=== PATIENT | female | born 1990 | race Caucasian/White ===

== ENCOUNTER 2022-11-02 11:20 | Emergency (ER) | payer MEDICAID, SELFPAY ==
[2022-11-02 11:32] VITALS: BP 152/74; PULSE 98; RESP 16; TEMP 37.1; O2SAT 100
--- NOTE | 2022-11-02 11:50 | ED.GENADULT ---
HPI - General Adult General Chief complaint: Urogenital-Female Stated complaint: Urinary Problem Source: patient Mode of arrival: ambulatory Limitations: no limitations History of Present Illness HPI narrative: Patient presents for evaluation of urinary symptoms for last 3 days. Symptoms include dysuria, urinary urgency, suprapubic cramping, low back pain and nausea. No fever, chills, vomiting. No vaginal bleeding or discharge. She has a history of recurrent urinary tract infections and this feels similar. She has been taking Azo for her symptoms. Related Data Allergies Allergy/AdvReac Type Severity Reaction Status Date / Time amoxicillin Allergy Unknown Verified 11/02/22 11:33 Penicillins Allergy Unknown Verified 11/02/22 11:33 Review of Systems Review of Systems: CONSTITUTIONAL: Denies fever, chills, or sweats. EYES: Denies visual changes, redness, or discharge. ENT: Denies rhinorrhea, congestion, sore throat, or otalgia. CARDIOVASCULAR: Denies chest pain, palpitations, or edema. RESPIRATORY: Denies cough or dyspnea. GASTROINTESTINAL: Reports nausea. Denies abdominal pain, vomiting, or diarrhea. GENITOURINARY: Reports dysuria, urinary urgency and suprapubic cramping SKIN: Denies rash or itching. MUSCULOSKELETAL: Reports low back pain. Denies joint pain, or myalgia. NEUROLOGIC: Denies headache, numbness, dizziness, or weakness. PSYCHIATRIC: Denies anxiety or depression. PMFSH Past Medical History Medical History Recurrent UTI Surgical History Surgical History No pertinent past surgical history Family History Family History Mother Family history non-contributory Social History Social History (Updated 11/02/22 @ 11:54 by Irvin Nielsen, [facility], ) Substance use: never Gender identity (if verbalized by the patient): Female Sexual Orientation (if Verbalized by the Patient): Straight or Heterosexual Spiritual care concerns: No Exam Narrative: GENERAL: Well-appearing, well-nourished, and in no acute distress. HEAD: Normocephalic, atraumatic. EYES: PERRLA and EOMI. ENT: Nares clear, no rhinorrhea or epistaxis. Mucous membranes moist. Oropharynx without tonsillar hypertrophy exudate or other lesions. Bilateral TMs pearly hurley nonbulging NECK: Supple. No adenopathy or masses. No carotid bruits or JVD CHEST: Clear to auscultation. No respiratory distress. No wheezes rales or rhonchi HEART: Regular rate and rhythm. No murmur heard. Normal peripheral pulses. ABDOMEN: Soft, nondistended, normal active bowel sounds. Mild suprapubic tenderness without rebound or guarding EXTREMITIES: Normal range of motion. No edema. BACK: Mild left sided CVA tendernss SKIN: Warm, dry, no rash. NEURO: No focal deficits. Alert and oriented x3. PSYCH: Normal mood and affect. Course Course Emergency Course: This is a 32-year-old female who presented for evaluation of urinary symptoms. Urine is nitrite positive. Will treat with macrobid. Zofran for nausea. She already has Azo at home. Follow-up with primary provider. Go to the ER for worsening symptoms. Patient in agreement plan of care Level of Care: Express Care Visit Vital Signs Vital signs: Vital Signs Temperature 37.1 C 11/02/22 11:32 Pulse Rate 98 11/02/22 11:32 Respiratory Rate 16 11/02/22 11:32 Blood Pressure 152/74 H 11/02/22 11:32 Pulse Oximetry 100 11/02/22 11:32 Oxygen Delivery Room Air 11/02/22 11:32 Temperature 37.1 C 11/02/22 11:32 Pulse Rate 98 11/02/22 11:32 Respiratory Rate 16 11/02/22 11:32 Blood Pressure 152/74 H 11/02/22 11:32 Pulse Oximetry 100 11/02/22 11:32 Oxygen Delivery Room Air 11/02/22 11:32 Medical Decision Making Vital Signs Vital Signs: Vital Signs Temperature 37.1 C 11/02/22 11:32 Pulse Ra
== END 2022-11-02 11:53 | disposition home or self-care (01) ==
PROVIDERS: Emergency Provider Nurse Practitioner
DX: N39.0 Urinary tract infection, site not specified (principal)
CPT/HCPCS: 81003; 87077; 87086; 87186; 99213; G0463

== ENCOUNTER 2023-03-14 10:33 | Emergency (ER) | payer MEDICAID, SELFPAY ==
[2023-03-14 10:41] VITALS: BP 144/93; PULSE 85; RESP 16; TEMP 36.9; O2SAT 100
--- NOTE | 2023-03-14 10:55 | ED.FEMALEGU ---
HPI - Female Genitourinary General Chief complaint: Urogenital-Female Stated complaint: Urinary Problem Source: patient and RN notes reviewed History of Present Illness HPI Narrative: 32 yo F Presents to urgent care with complaints of hematuria, dysuria, and mid abdominal pain that radiates around both sides. Pt states her pain is crampy in nature and does wax and wane but is constant. Reports nausea and diarrhea. Reports having hot flashes and chills at times. Pt states she did have her control implant removed about 1 month ago. Pt states her last menstrual period was 2 weeks ago but continued to have spotting. Pt states she gets UTIs all the time and has discussed the possibility of being placed on a preventative Abx for them. Pt's last UTI was in Oct this year and she placed on Macrobid. Denies any known fevers or fevers. Related Data Allergies Allergy/AdvReac Type Severity Reaction Status Date / Time amoxicillin Allergy Unknown Verified 03/14/23 11:00 Penicillins Allergy Unknown Verified 03/14/23 11:00 Review of Systems Review of Systems: Pertinent positives and pertinent negatives per HPI. PMFSH Past Medical History Medical History (Updated 03/14/23 @ 10:59 by Donna Jefferson, [employer]) Recurrent UTI Surgical History Surgical History No pertinent past surgical history Family History Family History Mother Family history non-contributory Social History Social History (Updated 11/02/22 @ 11:54 by Irvin Nielsen, [facility], ) Substance use: never Gender identity (if verbalized by the patient): Female Sexual Orientation (if Verbalized by the Patient): Straight or Heterosexual Spiritual care concerns: No Comments At the time of my signature, I reviewed and agree with the nursing past medical, surgical, social, and family history. There is no relevant family history pertinent to the patient complaint. Exam Narrative: GENERAL: This is a well-nourished, well-developed patient, in no apparent distress. HEAD: normocephalic, atraumatic. EYES: Sclera clear/white. Vision is grossly intact. EARS: External ears normal, auditory canals clear and without drainage, TMs normal without perforation. Hearing grossly intact. NOSE: External nose normal with no obvious nasal discharge, nares without redness, no rhinorrhea. THROAT: Mucous membranes moist, posterior pharynx clear. NECK: Neck supple, non-tender without lymphadenopathy, masses or thyromegaly. CARDIOVASCULAR: Regular rate and rhythm without murmurs, gallops, or rubs. RESPIRATORY: Clear to auscultation. Breath sounds equal bilaterally. No wheezes, rales, or rhonchi. GASTROINTESTINAL: Abdomen soft, non-tender, nondistended. Bowel sounds are active. No hepato-splenomegaly, or palpable masses. No guarding. SKIN: warm, intact with no suspicious lesions or rash, good texture and turgor. NEURO: awake, alert, and oriented to person, place and time. There were no obvious focal neurologic abnormalities. EXTREMITIES: No clubbing, cyanosis, or edema. No joint tenderness, effusion, or edema noted. BACK: Nontender without deformity or crepitus. No flank tenderness. Course Course Level of Care: Express Care Visit Vital Signs Vital signs: Vital Signs Temperature 98.5 F 03/14/23 10:41 Pulse Rate 85 03/14/23 10:41 Respiratory Rate 16 03/14/23 10:41 Blood Pressure 144/93 H 03/14/23 10:41 Pulse Oximetry 100 03/14/23 10:41 Oxygen Delivery Room Air 03/14/23 10:41 Temperature 98.5 F 03/14/23 10:41 Pulse Rate 85 03/14/23 10:41 Respiratory Rate 16 03/14/23 10:41 Blood Pressure 144/93 H 03/14/23 10:41 Pulse Oximetry 100 03/14/23 10:41 Oxygen Delivery Room Air 03/14/23 10:41 Reviewed MDM - Female Genitourinary MDM Narrative Medical decision making narrative: We will send a urine culture off to
== END 2023-03-14 11:18 | disposition home or self-care (01) ==
PROVIDERS: Emergency Provider Nurse Practitioner Family
DX: N39.0 Urinary tract infection, site not specified (principal)
CPT/HCPCS: 81003; 81025; 87086; 99213; G0463

== ENCOUNTER 2023-07-13 09:05 | Emergency (ER) | payer BC, SELFPAY ==
[2023-07-13 09:19] VITALS: BP 134/66; PULSE 89; RESP 16; TEMP 37; O2SAT 100
--- NOTE | 2023-07-13 10:14 | ED.FEMALEGU ---
HPI - Female Genitourinary General Chief complaint: Urogenital-Female Stated complaint: Urinary Problem Source: patient and RN notes reviewed Mode of arrival: ambulatory Limitations: no limitations History of Present Illness HPI Narrative: 33y/o female with hx recurrent UTIs presented for c/o UTI symptoms. Reports burning with urination and frequency, low back pain for about one week. Also reports low abdominal cramping which she attributed to menses. States she had Nexplanon removed 3 months ago, and has had regular cycles until recently, stating LMP was 2 weeks ago and again today. Denies n/v/d, flank pain, fever or chills. Recently relocated from [place], and stated she was supposed to establish with or start preventive abx but did not. Related Data Allergies Allergy/AdvReac Type Severity Reaction Status Date / Time amoxicillin Allergy Unknown Verified 07/13/23 09:53 Penicillins Allergy Unknown Verified 07/13/23 09:53 Review of Systems Review of Systems: CONSTITUTIONAL: Denies body aches, fever, chills, or sweats. CARDIOVASCULAR: Denies chest pain, palpitations, or edema. RESPIRATORY: Denies cough or dyspnea. GASTROINTESTINAL: Denies abdominal pain, nausea, vomiting, or diarrhea. GENITOURINARY: Reports dysuria, frequency, urgency, denies hematuria, flank pain SKIN: Denies rash, itching, or wounds. MUSCULOSKELETAL: Denies back pain or myalgia. [facility] Past Medical History Medical History Recurrent UTI Surgical History Surgical History No pertinent past surgical history Family History Family History Mother Family history non-contributory Social History Social History Substance use: never Gender identity (if verbalized by the patient): Female Sexual Orientation (if Verbalized by the Patient): Straight or Heterosexual Spiritual care concerns: No Comments At time of signature, I have reviewed and agree with nursing past medical, surgical, social and family history unless otherwise noted. Please see nursing chart for further information. There is no relevant family history pertinent to the presenting complaint Exam Narrative: GENERAL: Well-appearing and in no acute distress. HEAD: Normocephalic EYES: EOMI. . ENT: Mucous membranes pink and moist. NECK: Normal AROM. Supple. CHEST: No respiratory distress. Clear to auscultation. HEART: Regular rate and rhythm. ABDOMEN: Soft, nontender, nondistended, normal active bowel sounds. No CVA tenderness MUSCULOSKELETAL: No bony tenderness. SKIN: Warm, dry, no rash. NEURO: No focal deficits. Alert and oriented x3. Gait steady. PSYCH: Normal affect. Course Course Emergency Course: Patient is aware of diagnosis, understands and agrees to treatment plan. Anticipatory guidance given. Patient agrees to follow-up as directed and is aware of reasons to seek care at the emergency department. Portions of this record may have been created with voice recognition software Level of Care: Express Care Visit Vital Signs Vital signs: Vital Signs Temperature 98.6 F 07/13/23 09:19 Pulse Rate 89 07/13/23 09:19 Respiratory Rate 16 07/13/23 09:19 Blood Pressure 134/66 07/13/23 09:19 Pulse Oximetry 100 07/13/23 09:19 Oxygen Delivery Room Air 07/13/23 09:19 Temperature 98.6 F 07/13/23 09:19 Pulse Rate 89 07/13/23 09:19 Respiratory Rate 16 07/13/23 09:19 Blood Pressure 134/66 07/13/23 09:19 Pulse Oximetry 100 07/13/23 09:19 Oxygen Delivery Room Air 07/13/23 09:19 Reviewed MDM - Female Genitourinary MDM Narrative Medical decision making narrative: Discussed urine results. Advised supportive measures and signs/symptoms to go to the ER. Pt is appropriate for outpt treatment and f/u. Provide
== END 2023-07-13 10:20 | disposition home or self-care (01) ==
PROVIDERS: Emergency Provider Nurse Practitioner Family
DX: N39.0 Urinary tract infection, site not specified (principal); B95.1 Streptococcus, group B, as the cause of diseases classified elsewhere
CPT/HCPCS: 81003; 87086; 87088; 87147; 99213; G0463

== ENCOUNTER 2023-09-18 08:52 | Emergency (ER) | payer BC, SELFPAY ==
--- NOTE | 2023-09-18 08:54 | ED.URI ---
HPI - URI/Sore Throat General Chief Complaint: Upper Respiratory Infection Stated Complaint: congestion/throat/headache/eyes Time Seen by Provider: 09/18/23 09:30 Source: patient, RN notes reviewed and old records reviewed Mode of arrival: ambulatory Limitations: no limitations History of Present Illness HPI Narrative: 33-year-old female presents to [facility] with complaints of 2 weeks sinus congestion, sore throat, headache, eye irritation. Patient reports she has felt feverish, headaches has tried ?every [id number] product. ? Has had red puffy eyes intermittently Denies chest pain or abdominal pain. Onset (ago): week(s) (2) Treatments prior to arrival: cold medicine Related Data Allergies Allergy/AdvReac Type Severity Reaction Status Date / Time amoxicillin Allergy Unknown Verified 07/13/23 09:53 Penicillins Allergy Unknown Verified 07/13/23 09:53 Review of Systems Review of Systems: All systems reviewed & are unremarkable except as noted in HPI and below Constitutional: Constitutional: Reports as per HPI, Reports body ache(s), Reports fatigue and Reports fever(s) Eyes: Eyes: Reports as per HPI ENT: Reports as per HPI, Reports nasal congestion and Reports sore throat Cardiovascular: Cardiovascular: Reports no additional cardiovascular complaints, Denies chest pain and Denies dyspnea Respiratory: Respiratory: Reports as per HPI, Denies chest congestion, Reports cough and Denies dyspnea Gastrointestinal: Gastrointestinal: Reports no additional gastrointestinal complaints, Denies abdominal pain, Denies nausea and Denies vomiting Musculoskeletal: Musculoskeletal: Reports no additional musculoskeletal complaints Integumentary/Breasts: Skin/Breast: Reports system reviewed and no additional complaints, except as docu Neurologic: Reports system reviewed and no additional complaints, except as documented Psychiatric: Psychiatric: Reports no additional psychiatric complaints Allergic/Immunologic: Allergic/Immunologic: Reports no additional allergic/immunologic complaints PMFSH Past Medical History Medical History Recurrent UTI Surgical History Surgical History No pertinent past surgical history Family History Family History Mother Family history non-contributory Social History Social History Substance use: never Gender identity (if verbalized by the patient): Female Sexual Orientation (if Verbalized by the Patient): Straight or Heterosexual Spiritual care concerns: No Comments At the time of my signature, I reviewed and agree with the nursing past medical, surgical, social, and family history. There is no relevant family history pertinent to the patient complaint. Exam Const: General: cooperative, healthy appearing, comfortable, no acute distress, well developed, alert and well nourished Nutritional Appearance: well nourished Orientation/consciousness: patient oriented x3 Limitations: no limitations HENMT: Head: normal to inspection Ears: hearing grossly normal bilaterally, external ears normal, TM's normal bilaterally, EAC's normal, mastoids normal and no periauricular adenopathy Face/Nose/Sinus: Normal external nose present, Normal nares present, Normal nasal mucous membranes and turbinates present, No nasal discharge present, normal facial exam, sinuses nontender and face symmetric Face and sinus: normal facial exam and face symmetric Mouth: Yes Normal oral and palatal mucosa present, Yes lip normal and Yes moist mucous membranes Throat: posterior oropharynx normal, tonsils normal, uvula midline and postnasal drainage Eyes: General: appearance normal, both eyes and all related structures Alignment and Position: alignment normal Periorbital: periorbital findings normal Pup
[2023-09-18 09:00] VITALS: BP 155/59; PULSE 92; RESP 20; TEMP 36.6; O2SAT 100
== END 2023-09-18 09:45 | disposition home or self-care (01) ==
PROVIDERS: Emergency Provider Nurse Practitioner
DX: J06.9 Acute upper respiratory infection, unspecified (principal); J01.40 Acute pansinusitis, unspecified
CPT/HCPCS: 99213; G0463

== ENCOUNTER 2024-01-19 09:22 | Emergency (ER) | payer BC, SELFPAY ==
[2024-01-19 09:28] VITALS: BP 143/65; PULSE 93; RESP 20; TEMP 37.4; O2SAT 100
--- NOTE | 2024-01-19 09:31 | ED.BACK ---
HPI - Back Pain/Injury General Chief Complaint: Back Pain/Injury Stated Complaint: Sever Back Pain Source: patient Mode of arrival: ambulatory Limitations: no limitations History of Present Illness HPI Narrative: 33-year-old female presented for complaint of left lower back pain for about 1 week. Endorses pain is constant, sharp, occasionally radiates into the hip or down the thigh. Denies Fall or injury. Has taken Tylenol, ibuprofen and meloxicam without relief. Pain is worse with twisting movement and at night, states she cannot sleep. Denies numbness, tingling, weakness of the lower extremities, or change in gait, saddle paresthesia or loss of bowel or bladder. history of broken back and UTIs. Related Data Allergies Allergy/AdvReac Type Severity Reaction Status Date / Time amoxicillin Allergy Unknown Verified 07/13/23 09:53 Penicillins Allergy Unknown Verified 07/13/23 09:53 Review of Systems Review of Systems: CONSTITUTIONAL: Denies body aches, fever, chills EYES: Denies visual changes CARDIOVASCULAR: Denies chest pain, palpitations, or edema. RESPIRATORY: Denies cough or dyspnea. GASTROINTESTINAL: Denies abdominal pain, nausea, vomiting, or diarrhea. SKIN: Denies rash, itching, or wounds. MUSCULOSKELETAL: reports back pain NEUROLOGIC: Denies headache, numbness, tingling, or weakness. All systems reviewed & are unremarkable except as noted in HPI and below PMFSH Past Medical History Medical History Recurrent UTI Surgical History Surgical History No pertinent past surgical history Family History Family History Mother Family history non-contributory Social History Social History Substance use: never Gender identity (if verbalized by the patient): Female Sexual Orientation (if Verbalized by the Patient): Straight or Heterosexual Spiritual care concerns: No Comments At time of signature, I have reviewed and agree with nursing past medical, surgical, social and family history unless otherwise noted. Please see nursing chart for further information. There is no relevant family history pertinent to the presenting complaint Exam Narrative: GENERAL: Well-appearing NECK: Supple. full ROM CHEST: Speaks in full sentences. No respiratory distress. HEART: Regular rate and rhythm. Normal and equal peripheral pulses. MUSC: Left paraspinal tenderness over L-spine; No Vertebral point tenderness. BLEs with normal strength and sensation, normal range of motion; endorses pain with movement. No ecchymosis, No open wounds, or obvious deformity; alignment normal, pulse palpable and equal bilaterally, skin warm, dry, pink. Capillary refill less than 3 seconds. Gait steady. SKIN: Warm, dry, no rash. NEURO: Alert and oriented x3. Course Course Emergency Course: Patient is aware of diagnosis, understands and agrees to treatment plan. Anticipatory guidance given. Patient agrees to follow-up as directed and is aware of reasons to seek care at the emergency department. Portions of this record may have been created with voice recognition software Level of Care: Express Care Visit Vital Signs Vital signs: Reviewed MDM - Back Pain/Injury MDM Narrative Medical decision making narrative: Discussed physical exam findings. Patient had no injury. Will to with supportive measures and she will follow. Advised supportive measures and signs/symptoms to go to the ER. Pt is appropriate for outpt treatment and f/u. Differential Diagnosis Differential diagnosis: Likely lumbar radiculopathy, sciatica, strain of lumbar region, renal colic, pyelonephritis and discitis Discharge Plan Discharge Clinical Impression: Strain of lumbar region Patient Disposition: Home, Self-Care Conditi
== END 2024-01-19 09:49 | disposition home or self-care (01) ==
PROVIDERS: Emergency Provider Nurse Practitioner Family
DX: S39.012A Strain of muscle, fascia and tendon of lower back, initial encounter (principal)
CPT/HCPCS: 81003; 87086; 87088; 87147; 99213; G0463

== ENCOUNTER 2024-03-31 09:48 | Emergency (ER) | payer BC, SELFPAY ==
[2024-03-31 09:52] VITALS: BP 151/64; PULSE 100; RESP 16; TEMP 36.9; O2SAT 100
[2024-03-31 10:19] LABS: EDUAAPPEAR Clear; EDUABILI Negative; EDUABLOOD 3+; EDUACOLOR1 Yellow; EDUAGLUCOSE Negative; EDUAKETONE Negative; EDUALEUKO Negative; EDUANITRATE Negative; EDUAPH 8.5; EDUAPROTEIN Negative; EDUASPGRAVITY 1.025; EDUAUROBILI 0.2
--- NOTE | 2024-03-31 10:27 | ED.FEMALEGU ---
HPI - Female Genitourinary General Chief complaint: Urogenital-Female Stated complaint: migraine/nausea/uti Time Seen by Provider: 03/31/24 10:00 Source: patient and RN notes reviewed Mode of arrival: ambulatory Limitations: no limitations History of Present Illness HPI Narrative: Patient presents today complaining of a 10 day history of dysuria, frequency. Denies abdominal pain, back pain, fever. Reports history of frequent UTI. She is also complaining of a 3-4 day history of frontal headache with nausea, photophobia, intermittent dizziness. She vomited once this morning. Currently rates her pain 10/10 and has been taking Excedrin without much relief. Reports the symptoms are consistent with previous headaches. No formal diagnosis of migraine, but has been having chronic headaches for many years. Related Data Allergies Allergy/AdvReac Type Severity Reaction Status Date / Time amoxicillin Allergy Unknown Verified 03/31/24 10:37 Penicillins Allergy Unknown Verified 03/31/24 10:37 Review of Systems Review of Systems: CONSTITUTIONAL: Denies body aches, fever, chills, or sweats. EYES: Denies visual changes, redness, or discharge.+ photophobia ENT: Denies rhinorrhea, congestion, sore throat, or otalgia. CARDIOVASCULAR: Denies chest pain, palpitations, or edema. RESPIRATORY: Denies cough or dyspnea. GASTROINTESTINAL: Denies abdominal pain, or diarrhea.+ nausea, vomiting GENITOURINARY: + dysuria, frequency. SKIN: Denies rash, itching, or wounds. MUSCULOSKELETAL: Denies back pain, joint pain, or myalgia. NEUROLOGIC: Denies numbness, tingling, or weakness.+ headache, dizziness PSYCH: Denies depression or anxiety. [facility] Past Medical History Medical History Recurrent UTI Surgical History Surgical History No pertinent past surgical history Family History Family History Mother Family history non-contributory Social History Social History Substance use: never Gender identity (if verbalized by the patient): Female Sexual Orientation (if Verbalized by the Patient): Straight or Heterosexual Spiritual care concerns: No Comments At time of signature, I have reviewed and agree with nursing past medical, surgical, social and family history unless otherwise noted. Please see nursing chart for further information. There is no relevant family history pertinent to the presenting complaint Exam Narrative: GENERAL: Well-appearing, well-nourished, and in [id number] pain distress. HEAD: Normocephalic, atraumatic. EYES: EOMI. PERRL. No redness or drainage. Conjunctivae normal. ENT: Mucous membranes pink and moist. NECK: Normal AROM. Supple. No lymphadenopathy. CHEST: No respiratory distress. Clear to auscultation. HEART: Regular rate and rhythm. No murmur appreciated. ABDOMEN: Soft, nontender, nondistended, normal active bowel sounds. EXTREMITIES: Normal range of motion. No edema. SKIN: Warm, dry, no rash. Capillary refill normal. Normal skin turgor. NEURO: No focal deficits. Alert and oriented x3. Gait steady. 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 Dorsiflexion and plantar flexion equal and strong against resistance. PSYCH: Normal affect. No signs of depression or anxiety. Course Course Level of Care: Express Care Visit Vital Signs Vital signs: Vital Signs Temperature 98.5 F 03/31/24 09:52 Pulse Rate 100 03/31/24 09:52 Respiratory Rate 16 03/31/24 09:52 Blood Pressure 151/64 H 03/31/24 09:52 Pulse Oximetry 100 03/31/24 09:52 Oxygen Delivery Room Air 03/31/24 09:52 Temperature 98.5 F 03/31/24 09:52 Pulse Rate 100 03/31/24 09:52 Respiratory Rate 16 03/31/24 09:52 Blood Pressure 151/64 H 03/31/24 09:52 Pulse Oximetry 100
[2024-03-31] MEDS: ONDANSETRON HCL ODT 4 MG TABLET 8 MG SUBLINGUAL (10:33)
[2024-03-31] MEDS: KETOROLAC (*BKC) 60 MG/2 ML VIAL IM (10:34)
== END 2024-03-31 11:12 | disposition home or self-care (01) ==
PROVIDERS: Emergency Provider Nurse Practitioner
DX: N30.00 Acute cystitis without hematuria (principal); B95.1 Streptococcus, group B, as the cause of diseases classified elsewhere; R51.9 Headache, unspecified
CPT/HCPCS: 81003; 87086; 96372; 99213; A9270; G0463; J1885

== ENCOUNTER 2024-05-29 08:08 | Emergency (ER) | payer BC, SELFPAY ==
[2024-05-29 08:22] VITALS: BP 134/82; PULSE 105; RESP 18; TEMP 36.3; O2SAT 99
--- NOTE | 2024-05-29 08:28 | ED.EAR ---
HPI - Ear Problem General Chief complaint: Ear Stated complaint: Bilateral Ear Pain Time Seen by Provider: 05/29/24 08:28 Source: patient, RN notes reviewed and old records reviewed Mode of arrival: ambulatory Limitations: no limitations History of Present Illness HPI Narrative: 34-year-old female to [facility] for complaint of chronic migraine issues that have become acutely worse and constant over the past week. Patient endorsing dizziness, nausea, sinus pressure, bilateral ear pain, facial pain/ pressure. Patient currently endorsing 12/10 pain. Patient denies shortness of breath, vomiting, difficulty swallowing, visual changes, chest pain. Patient states that she did not drive to [facility] today, states her dropped her off. Patient states she has been treating home with Aleve and a 12 hour decongestant [id number] medication. Patient states she is also taking an antibiotic for a urinary tract infection. Patient reports being seen by her PCP on Friday regarding migraines. Patient states she is awaiting lab results. Patient able to tolerate by mouth. Patient sitting anxiously an exam room. respirations even and nonlabored. Patient able to speak in complete sentences without difficulty. Patient in no acute distress. Related Data Home Medications Medication Instructions Recorded Confirmed nitrofurantoin 05/29/24 monohydrate/macrocrystals 100 mg capsule Allergies Allergy/AdvReac Type Severity Reaction Status Date / Time amoxicillin Allergy Unknown Verified 03/31/24 10:37 Penicillins Allergy Unknown Verified 03/31/24 10:37 Review of Systems Review of Systems: All systems reviewed & are unremarkable except as noted in HPI and below Constitutional: Constitutional: Reports as per HPI Eyes: Eyes: Reports no additional eye complaints ENT: Reports as per HPI, Reports otalgia, Reports facial pain, Reports nasal congestion, Reports sinus pain and Reports sinus pressure Cardiovascular: Cardiovascular: Reports no additional cardiovascular complaints, Denies chest pain and Denies dyspnea Respiratory: Respiratory: Reports no additional respiratory complaints, Denies cough and Denies dyspnea Gastrointestinal: Gastrointestinal: Reports as per HPI and Reports nausea Musculoskeletal: Musculoskeletal: Reports no additional musculoskeletal complaints Neurologic: Reports as per HPI and Reports dizziness Psychiatric: Psychiatric: Reports no additional psychiatric complaints [facility] Past Medical History Medical History Recurrent UTI Surgical History Surgical History No pertinent past surgical history Family History Family History Mother Family history non-contributory Social History Social History Substance use: never Gender identity (if verbalized by the patient): Female Sexual Orientation (if Verbalized by the Patient): Straight or Heterosexual Spiritual care concerns: No Comments At the time of my signature, I reviewed and agree with the nursing past medical, surgical, social, and family history. There is no relevant family history pertinent to the patient complaint. Exam Const: General: cooperative, no acute distress, well developed, alert, awake, Physically active, anxious, tired appearing, well groomed and well nourished Nutritional Appearance: well nourished Orientation/consciousness: patient oriented x3 Limitations: no limitations HENMT: Head: normal to inspection Ears: external ears normal and TM abnormal with fluid behind the TM bilateral ( non infectious) Face/Nose/Sinus: Normal external nose present, Abnormal mucous membranes and turbinates present erythematous, normal facial exam, No erythema and No edema Face and sinus
== END 2024-05-29 09:02 | disposition home or self-care (01) ==
PROVIDERS: Emergency Provider Nurse Practitioner Family
DX: J32.9 Chronic sinusitis, unspecified (principal)
CPT/HCPCS: 99213; G0463

== ENCOUNTER 2024-08-15 08:14 | Emergency (ER) | payer BC, SELFPAY ==
[2024-08-15 08:23] VITALS: BP 158/87; PULSE 94; RESP 16; TEMP 36.4; O2SAT 100
--- NOTE | 2024-08-15 08:26 | ED.EAR ---
HPI - Ear Problem General Chief complaint: Ear Stated complaint: right ear pain Time Seen by Provider: 08/15/24 08:26 Source: patient, RN notes reviewed and old records reviewed Mode of arrival: ambulatory Limitations: no limitations History of Present Illness HPI Narrative: 34 year old female who presents to [facility] with complaints of right ear pain that started last night. Patient reports that she has had some nausea and dizziness with the ear pain also. Patient reports that she has did vomit some last night. Patient reports that she has been taking Tylenol for her discomfort. Patient reports no fevers states some sinus congestion on going also. MD Complaint: ear pain Location: right ear Duration: constant Severity: moderate Discharge from ear: Reports no Treatment prior to arrival: other (tylenol) Related Data Allergies Allergy/AdvReac Type Severity Reaction Status Date / Time amoxicillin Allergy Unknown Verified 03/31/24 10:37 Penicillins Allergy Unknown Verified 03/31/24 10:37 Review of Systems Review of Systems: CONSTITUTIONAL: Reports malaise,no chills, sweats, or fever. EYES: Denies visual changes, redness, or discharge. ENT: Reports rhinorrhea, congestion, no sinus pain, positive for right otalgia and no sore throat. CARDIOVASCULAR: Denies chest pain, palpitations, or edema. RESPIRATORY: Reports no cough.? Denies dyspnea. GASTROINTESTINAL: Denies abdominal pain,some nausea, vomiting, no diarrhea SKIN: Denies rash or itching. MUSCULOSKELETAL: Denies myalgia. NEUROLOGIC: Denies headache. All systems reviewed & are unremarkable except as noted in HPI and below PMFSH Past Medical History Medical History Recurrent UTI Surgical History Surgical History No pertinent past surgical history Family History Family History Mother Family history non-contributory Social History Social History Substance use: never Gender identity (if verbalized by the patient): Female Sexual Orientation (if Verbalized by the Patient): Straight or Heterosexual Spiritual care concerns: No Comments At time of signature, agree with nursing past medical, surgical, social and family history. There is no relevant family history pertinent to the presenting complaint Exam Narrative: GENERAL: Well-appearing, well-nourished, and in no acute distress. HEAD: Normocephalic EYES: PERRLA, conjunctivae clear ENT: Nares clear, turbinates edematous and erythematous, clear discharge. Mucous membranes moist Right TM red Left TM pearly hurley with dull light reflex; no tragal tenderness. Oropharynx erythematous without lesions. Tonsils not enlarged and without exudate, no drooling, no hoarseness, no trismus, uvula midline. NECK: Supple. No lymphadenopathy CHEST: Clear to auscultation, breath sounds equal. No wheezing, rhonchi, rales, or stridor. No respiratory distress, speaks in full sentences.SAO2 199% on room air HEART: Regular rate and rhythm. No murmur heard. SKIN: Warm, dry, no rash. NEURO: Alert and oriented x3. PSYCH: Normal mood and affect Course Course Emergency Course: Patient is aware of diagnosis, understands and agrees to treatment plan.? Anticipatory guidance given.? Patient agrees to follow-up as directed and is aware of reasons to seek care at the emergency department. Portions of this record may have been created with voice recognition software Level of Care: [facility] Visit Vital Signs Vital signs: Vital Signs Temperature 36.4 C L 08/15/24 08:23 Pulse Rate 94 08/15/24 08:23 Respiratory Rate 16 08/15/24 08:23 Blood Pressure 158/87 H 08/15/24 08:23 Pulse Oximetry 100 08/15/24 08:23 Oxygen Delivery Room Air 08/15/24 08:23 Temperature 36.4 C L 08/15/24 08:23 Pulse Rate 94 08/15/24 08:23 Respiratory Rate 16 08/15/24 08:23 Blood Pressure 158/87 H 08/15/24 08:23 Pulse Oximetry 100 08/15/24 08:23 Oxygen Delivery Room Air 08/15/24 08:23 Reviewed Medical Decision Making Differential Diagnosis Differential Diagnosis: URI, otitis media, rhinosinusitis, viral infection Medical Records Medical records reviewed: Yes I reviewed the external patient's medical records. Vital Signs Vital Signs: Vital Signs Temperature 36.4 C L 08/15/24 08:23 Pulse Rate 94 08/15/24 08:23 Respiratory Rate 16 08/15/24 08:23 Blood Pressure 158/87 H 08/15/24 08:23 Pulse Oximetry 100 08/15/24 08:23 Oxygen Delivery Room Air 08/15/24 08:23 Temperature 36.4 C L 08/15/24 08:23 Pulse Rate 94 08/15/24 08:23 Respiratory Rate 16 08/15/24 08:23 Blood Pressure 158/87 H 08/15/24 08:23 Pulse Oximetry 100 08/15/24 08:23 Oxygen Delivery Room Air 08/15/24 08:23 reviewed Critical Care Time Critical Care Time Critical Care Time: No Discharge Plan Discharge Clinical Impression: Otitis media, right Qualifiers: Otitis media type: serous Chronicity: acute Recurrence: non-recurrent Qualified Code(s): H65.01 - Acute serous otitis media, right ear Nausea & vomiting Qualifiers: Vomiting type: unspecified Qualified Code(s): R11.2 - Nausea with vomiting, unspecified Patient Disposition: Home, Self-Care Condition: Stable Instructions: Antibiotic Form, Ear Infection (ED), Acute Nausea and Vomiting (ED) Additional Instructions: Increase fluids especially juices and water Fuoh-yvq-jwmupsy cough and cold medicine of your choice for your symptoms Tylenol or ibuprofen for any fever pain Zyrtec Claritin or Ayesha daily heat to the face 20-30 minutes 4-6 times a day for pain Salt water gargles, throat lozenges or throat sprays as desired Antibiotic as directed--finished the medication If your symptoms persist, change or worsen significantly before you can contact your personal physician then please, without delay, go to the emergency department for further evaluation. Follow-up with PCP in 7-10 days or sooner if needed Follow up with PCP soon in regards to your blood pressure which is elevated above threshold for referral. Blood pressure above 120/80 may indicate pre-hypertension. Prescriptions: New azithromycin 250 mg tablet See Rx Instructions .ROUTE .COMPLEX Qty: 6 0RF Rx Instructions: For 250 mg dose pack: take 500 mg today (day 1), then 250 mg for 4 days (days 2-5) ondansetron 4 mg tablet,disintegrating 4 mg PO Q6H PRN (Reason: nausea and vomiting) Qty: 14 0RF Follow-up/Referrals: PHYSICIAN NOT ON STAFF,NONSTAFF [Primary Care Provider] - Time of Disposition: 08:46 Quality Tyra Coma Scale Eyes: Open Verbal: Oriented and Alert Motor: Follows Commands Tyra Coma Total Score: 15
== END 2024-08-15 08:51 | disposition home or self-care (01) ==
PROVIDERS: Emergency Provider Registered Nurse
DX: H65.01 Acute serous otitis media, right ear (principal); R11.2 Nausea with vomiting, unspecified
CPT/HCPCS: 99213; G0463

== ENCOUNTER 2024-09-09 08:11 | Emergency (ER) | payer BC, SELFPAY ==
[2024-09-09 08:19] VITALS: BP 148/74; PULSE 93; RESP 20; TEMP 36.9; O2SAT 100
--- NOTE | 2024-09-09 08:46 | ED_ITS ---
HPI - Extremity Injury (Lower) General Chief Complaint: Extremity Injury, Lower Stated Complaint: Left leg hamstring pain Time Seen by Provider: 09/09/24 08:34 Source: patient, RN notes reviewed and old records reviewed Mode of arrival: ambulatory Limitations: no limitations History of Present Illness HPI Narrative: 34 year old female who [facility] with complaints of injury to her left posterior leg after MD complaint: thigh injury (left) Onset (ago): day(s) (since last night) Injury: Left: thigh Type of Injury: hyperextension Place: home Severity scale (1-10): 9 Treatments prior to arrival: other (none) Related Data Home Medications ?Medication ?Instructions ?Recorded ?Confirmed ?Last Taken ?Type folic acid 1 mg tablet 09/09/24 Unknown History loratadine 10 mg tablet mg 09/09/24 Unknown History Allergies Allergy/AdvReac Type Severity Reaction Status Date / Time amoxicillin Allergy Unknown Verified 09/09/24 08:23 Penicillins Allergy Unknown Verified 09/09/24 08:23 Review of Systems Review of Systems: CONSTITUTIONAL: Denies fever, chills, or sweats. EYES: Denies visual changes, redness, or discharge. ENT: Denies rhinorrhea, congestion, sore throat, or otalgia. CARDIOVASCULAR: Denies chest pain, palpitations, or edema. RESPIRATORY: Denies cough or dyspnea. GASTROINTESTINAL: Denies abdominal pain, nausea, vomiting, or diarrhea. GENITOURINARY: Denies dysuria or hematuria. SKIN: Denies rash or itching. MUSCULOSKELETAL: Denies back pain,positive for pain to the posterior left thigh below buttock to mid thigh area , or myalgia. NEUROLOGIC: Denies headache, numbness, or weakness. PSYCHIATRIC: Denies anxiety or depression. All systems reviewed & are unremarkable except as noted in HPI and below PMFSH Past Medical History Medical History Migraine GERD (gastroesophageal reflux disease) Recurrent UTI Surgical History Surgical History No pertinent past surgical history Family History Family History Mother Family history non-contributory Social History Social History Smoking status: Never smoker Alcohol use details: social Substance use: never Gender identity (if verbalized by the patient): Female Sexual Orientation (if Verbalized by the Patient): Straight or Heterosexual Spiritual care concerns: No Comments At time of signature, agree with nursing past medical, surgical, social and family history. There is no relevant family history pertinent to the presenting complaint Exam Narrative: GENERAL: Well-appearing, well-nourished, and in some acute distress related to her discomfort of left thigh. HEAD: Normocephalic, atraumatic. EYES: PERRLA and EOMI. ENT: Nares clear, no rhinorrhea or epistaxis. Mucous membranes moist.TM's normal, throat pink with no swelling NECK: Supple. no lymphadenopathy CHEST: Clear to auscultation. No respiratory distress.SAO2 100% on room air HEART: Regular rate and rhythm. No murmur heard. Normal peripheral pulses. ABDOMEN: Soft, nontender, nondistended, normal active bowel sounds. EXTREMITIES: Normal range of motion. No edema. Pain to the posterior left thigh from below buttock to mid thigh area, reports pain with any movement of left leg is able to put weight on left leg and is limping, strong left pedal pulse present. SKIN: Warm, dry, no rash. NEURO: No focal deficits. Alert and oriented x3. Course Course Emergency Course: Patient is aware of diagnosis, understands and agrees to treatment plan.? Anticipatory guidance given.? Patient agrees to follow-up as directed and is aware of reasons to seek care at the emergency department. Portions of this record may have been created with voice recognition software Level of Care: [facility] Visit Vital Signs Vital signs: Vital Signs Temperature 36.9 C 09/09/24 08:19 Pulse Rate 93 09/09/24 08:19 Respiratory Rate 20 09/09/24 08:19 Blood Pressure 148/74 H 09/09/24 08:19 Pulse Oximetry 100 09/09/24 08:19 Oxygen Delivery Room Air 09/09/24 08:19 Temperature 36.9 C 09/09/24 08:19 Pulse Rate 93 09/09/24 08:19 Respiratory Rate 20 09/09/24 08:19 Blood Pressure 148/74 H 09/09/24 08:19 Pulse Oximetry 100 09/09/24 08:19 Oxygen Delivery Room Air 09/09/24 08:19 Reviewed MDM - Extremity Injury (Lower) Differential Diagnosis Differential diagnosis: Likely other (pain to left posterior thigh, hamstring sprain or strain. tear of hamstring) Medical Records Attestation: I reviewed the patient's medical records. Critical Care Time Critical Care Time Critical Care Time: No Discharge Plan Discharge Clinical Impression: Hamstring muscle strain Qualifiers: Encounter type: initial encounter Laterality: left Qualified Code(s): S76.312A - Strain of muscle, fascia and tendon of the posterior muscle group at thigh level, left thigh, initial encounter Patient Disposition: Home, Self-Care Condition: Stable Instructions: Antibiotic Form, Hamstring Injury (ED) Additional Instructions: Tylenol for lesser pain Ibuprofen regularly for the next 2-3 days for the inflammation take 400 mg 3 times daily for the next 2 days with food Prednisone 20 mg twice daily for 5 days take with food Follow-up with orthopedic surgeon if no improvement Follow-up with PCP if further problems or concerns Ice to the area 20-30 minutes 4-6 times a day Elevate above heart If your symptoms persist, change or worsen significantly before you can contact your personal physician then please, without delay, go to the emergency department for further evaluation. Follow-up with PCP in 7-10 days or sooner if needed Follow up with PCP soon in regards to your blood pressure which is elevated above threshold for referral. Blood pressure above 120/80 may indicate pre- hypertension. 148/74 Patient Language: Serbian Prescriptions: New prednisone 20 mg tablet 20 mg PO BID Qty: 10 0RF ibuprofen 400 mg tablet 400 mg PO TID PRN (Reason: fever or pain) Qty: 30 0RF No Action folic acid 1 mg tablet loratadine 10 mg tablet Follow-up/Referrals: PHYSICIAN NOT ON STAFF,NONSTAFF [Primary Care Provider] - Time of Disposition: 09:01 Quality Rumson Coma Scale Eyes: Open Verbal: Oriented and Alert Motor: Follows Commands Tyra Coma Total Score: 15
--- OUTSIDE RECORDS SUMMARY | 2024-09-16 13:02 | XMS_ITS | Data Portability ---
Author Organization [facility] [place] [facility] Address [address] [place] [address] Care Team Providers Care Photo Producer Name Role Phone DEBRA ROQUE [facility] Assessment No assessment recorded. Plan of Treatment Reminders Order Date Submit Date Provider Last Modified By Organization Details Last Modified Time Details Appointments None recorded. Lab magnesium, serum or plasma 2023 024 J[facility], [address] [facility], [facility], [place], [address], 4 03:08:07 culture, urine 2023 024 J[facility], [address] [facility], [facility], [place], [address], 4 08:24:39 respiratory allergen panel - [facility] c 2023 024 J[facility]AN [facility], [address] [facility], [facility], [place], [address], 4 20:10:03 food allergen panel, serum 2023 024 J[facility], [address] [facility], [facility], [place], [address], 4 20:10:05 TSH, ultra-sensi tive, serum 2023 024 JUAN [facility], [address], [place], [address], 4 20:10:03 CMP, serum or plasma 2023 024 [facility], [address], [place], [address], 4 03:08:06 lipid panel, serum 2023 024 [facility], [address], [place], [address], 4 03:08:05 vitamin B12 + folate, serum or blood 2023 024 [facility], [address] [facility], [facility], [place], [address], 4 20:10:05 vitamin D, 25-hydroxy, total, serum 2023 024 [facility], [address] [facility], [facility], [place], [address], 4 20:10:07 CBC w/ auto diff 2023 024 [facility], [address] [facility], [facility], [place], [address], 4 03:08:07 iron + total iron-bindin g capacity (TIBC), serum 2023 024 [facility], [address] [facility], [facility], [place], [address], 4 20:10:06 PETER (antinuclea r antibodies) screen, serum 2023 024 [facility], [address] [facility], [facility], [place], [address], 4 20:10:02 Referral None recorded. Procedures None recorded. Surgeries None recorded. Imaging None recorded. Medication Orders sumatriptan 25 mg tablet 2023 024 [id number], [address], [place], [place], [id number], 08:53:12 loratadine 10 mg tablet 2023 024 J[id number], [address], [place], [place], [id number], 11:36:01 Patient TargetsNo targets recorded. Patient Instructions Encounter Date Encounter Id Patient Instructions Last Modified By Organization Details Last Modified Time 05/24/2024 [id number] A healthy lifestyle: care instructions Not available 05/24/2024 10:57:32 chronic sinusitis: care instructions Not available 05/24/2024 10:57:31 Increase intake of fresh fruits,?? and vegetables. Avoid packaged foods and fast foods. ?? Follow a low salt diet, drink at least 8-10 8oz glasses of water a day, exercise most days of the week. Take all medications as prescribed. Keep appointments with PCP and all specialists. [email or web address] Not available 05/24/2024 10:58:09 [email or web address] labs needed, plan pending results Not available 05/24/2024 10:58:19 Reason for Referral None Reported. Results Created Date Observation Date Name Description Value Unit Range Abnormal Flag Note LastModifiedBy Organization Detail LastModifiedTime 05/24/2005/24/2024 LIPID PANEL cholesterol, total 184 mg/dL 100-19 9 Not Available [facility] [address] [place], [address], 05/25/2024 03:08:05 05/24/20 24 05/24/2024 LIPID PANEL triglyceride s 89 mg/dL 0-149 Not Available [facility] Department [address] [place], [address], 05/25/2024 03:08:05 05/24/20 24 05/24/2024 LIPID PANEL HDL cholesterol 78 mg/dL 40-999 Not Available [facility] Department [address] [place], [address], 05/25/2024 03:08:05 05/24/20 24 05/24/2024 LIPID PANEL VLDL cholesterol tanisha 18 mg/dL 5-40 Not Available [facility] Department [address] [place] [address], [address], 05/25/2024 03:08:05 05/24/20 24 05/24/2024 LIPID PANEL LDL chol calc (nih) 101 mg/dL 0-99 above high normal Not Available [facility] [address] [place], [address], 05/25/2024 03:08:05 05/24/20 24 05/24/2024 COMP. METAB OLIC PANEL (14) glucose 77 mg/dL 70-99 Not Available [facility] Department [address] [place] [address], [address], 05/25/2024 03:08:06 05/24/20 24 05/24/2024 COMP. METAB OLIC PANEL (14) BUN 11 mg/dL 6-20 Not Available [facility] [address] [place], [address], 05/25/2024 03:08:06 05/24/20 24 05/24/2024 COMP. METAB OLIC PANEL (14) creatinine 0.79 mg/dL 0.76-1 .27 Not Available [facility] Department [address] [place] [address], [address], 05/25/2024 03:08:06 05/24/20 24 05/24/2024 COMP. METAB OLIC PANEL (14) eGFR 101 >=60 Units for eGFR value s are mL/mi n/1.7 3 The eGFR Calcu latio n has not been valid ated for patie nts under the age of 18. If test resul ts are displ ayed for a patie nt under the age of 18, disre cheryl that value . Not Available [facility] Department [address] [place] [address], [address], 05/25/2024 03:08:06 05/24/20 24 05/24/2024 COMP. METAB OLIC PANEL (14) BUN/creatini ne ratio 14 9-23 Not Available [facility] Department [address] [place] [address], [address], 05/25/2024 03:08:06 05/24/20 24 05/24/2024 COMP. METAB OLIC PANEL (14) sodium 137 mmol/ L 134-14 4 Not Available [facility] Department [address] [place] [address], [address], 05/25/2024 03:08:06 05/24/20 24 05/24/2024 COMP. METAB OLIC PANEL (14) potassium 4.1 mmol/ L 3.5-5. 2 Not Available [facility] Department [address] [place] [address], [address], 05/25/2024 03:08:06 05/24/20 24 05/24/2024 COMP. METAB OLIC PANEL (14) chloride 99 mmol/ L 96-106 Not Available [facility] Department [address] [place] [address], [address], 05/25/2024 03:08:06 05/24/20 24 05/24/2024 COMP. METAB OLIC PANEL (14) carbon dioxide, total 25 mmol/ L 20-29 Not Available [facility] [address] [place] [address], [address], 05/25/2024 03:08:06 05/24/20 24 05/24/2024 COMP. METAB OLIC PANEL (14) calcium 9.8 mg/dL 8.7-10 .2 Not Available [facility] Department [address] [place] [address], [address], 05/25/2024 03:08:06 05/24/20 24 05/24/2024 COMP. METAB OLIC PANEL (14) protein, total 7.6 g/dL 6.0-8. 5 Not Available [facility] Department [address] [place] [address], [address], 05/25/2024 03:08:06 05/24/20 24 05/24/2024 COMP. METAB OLIC PANEL (14) albumin 4.7 g/dL 3.9-4. 9 Not Available [facility] [address] [place], [address], 05/25/2024 03:08:06 05/24/20 24 05/24/2024 COMP. METAB OLIC PANEL (14) globulin, total 2.9 g/dL 1.5-4. 5 Not Available [facility] Department [address] [place], [address], 05/25/2024 03:08:06 05/24/20 24 05/24/2024 COMP. METAB OLIC PANEL (14) A/G ratio 2.0 1.2-2. 2 Not Available [facility] [address] [place], [address], 05/25/2024 03:08:06 05/24/20 24 05/24/2024 COMP. METAB OLIC PANEL (14) bilirubin, total 1.0 mg/dL 0.0-1. 2 Not Available [facility] [address] [place], [address], 05/25/2024 03:08:06 05/24/20 24 05/24/2024 COMP. METAB OLIC PANEL (14) alkaline phosphatase 83 IU/L 44-121 Not Available [facility] Department [address] [place], [address], 05/25/2024 03:08:06 05/24/20 24 05/24/2024 COMP. METAB OLIC PANEL (14) AST (SGOT) 24 IU/L 0-40 Not Available [facility] Department [address] [place], [address], 05/25/2024 03:08:06 05/24/20 24 05/24/2024 COMP. METAB OLIC PANEL (14) ALT (SGPT) 13 IU/L 0-32 Not Available [facility] Department [address] [place], [address], 05/25/2024 03:08:06 05/24/20 24 05/24/2024 MAGNE SIUM magnesium 1.9 mg/L 1.6-2. 3 Not Available [facility] [address] [place], [address], 05/25/2024 03:08:06 05/24/20 24 05/24/2024 CBC WITH DIFFE RENTI AL/PL ATELE T WBC 8.8 x10e3 /uL 3.4-10 .8 Not Available [facility] Department [address] [place], [address], 05/25/2024 03:08:07 05/24/20 24 05/24/2024 CBC WITH DIFFE RENTI AL/PL ATELE T RBC 4.33 x10e6 /uL 3.77-5 .28 Not Available [facility] [address] [place], [address], 05/25/2024 03:08:07 05/24/20 24 05/24/2024 CBC WITH DIFFE RENTI AL/PL ATELE T hemoglobin 14.8 g/dL 11.1-1 5.9 Not Available [facility] [address] [place], [address], 05/25/2024 03:08:07 05/24/20 24 05/24/2024 CBC WITH DIFFE RENTI AL/PL ATELE T hematocrit 44.6 % 34.0-4 6.6 Not Available [facility] [address] [place], [address], 05/25/2024 03:08:07 05/24/20 24 05/24/2024 CBC WITH DIFFE RENTI AL/PL ATELE T MCV 103 fL 79-97 above high normal Not Available [facility] [address] [place], [address], 05/25/2024 03:08:07 05/24/20 24 05/24/2024 CBC WITH DIFFE RENTI AL/PL ATELE T MCH 34.2 pg 26.6-3 3.0 above high normal Not Available [facility] [address] [place], [address], 05/25/2024 03:08:07 05/24/20 24 05/24/2024 CBC WITH DIFFE RENTI AL/PL ATELE T MCHC 33.2 g/dL 31.5-3 5.7 Not Available [facility] [address] [place], [address], 05/25/2024 03:08:07 05/24/20 24 05/24/2024 CBC WITH DIFFE RENTI AL/PL ATELE T RDW 12.7 % 11.5-1 4.5 Not Available [facility] [address] [place], [address], 05/25/2024 03:08:07 05/24/20 24 05/24/2024 CBC WITH DIFFE RENTI AL/PL ATELE T platelets 287 x10e3 /uL 150-45 0 Not Available [facility] [address] [place], [address], 05/25/2024 03:08:07 05/24/20 24 05/24/2024 CBC WITH DIFFE RENTI AL/PL ATELE T neutrophils 73 % notest b. Not Available [facility] [address] [place], [address], 05/25/2024 03:08:07 05/24/20 24 05/24/2024 CBC WITH DIFFE RENTI AL/PL ATELE T lymphs 20 % notest b. Not Available [facility] [address] [place], [address], 05/25/2024 03:08:07 05/24/20 24 05/24/2024 CBC WITH DIFFE RENTI AL/PL ATELE T monocytes 5 % notest b. Not Available [facility] [address] [place], [address], 05/25/2024 03:08:07 05/24/20 24 05/24/2024 CBC WITH DIFFE RENTI AL/PL ATELE T eos 2 % notest b. Not Available [facility] [address] [place], [address], 05/25/2024 03:08:07 05/24/20 24 05/24/2024 CBC WITH DIFFE RENTI AL/PL ATELE T basos 1 % notest b. Not Available [facility] Department [address] [place] [address], [address], 05/25/2024 03:08:07 05/24/20 24 05/24/2024 CBC WITH DIFFE RENTI AL/PL ATELE T neutrophils (absolute) 6.4 x10e3 /uL 1.4-7. 0 Not Available [facility] [address] [place], [address], 05/25/2024 03:08:07 05/24/20 24 05/24/2024 CBC WITH DIFFE RENTI AL/PL ATELE T lymphs (absolute) 1.7 x10e3 /uL 0.7-3. 1 Not Available [facility] [address] [place], [address], 05/25/2024 03:08:07 05/24/20 24 05/24/2024 CBC WITH DIFFE RENTI AL/PL ATELE T monocytes(ab solute) 0.5 x10e3 /uL 0.1-0. 9 Not Available [facility] [address] [place], [address], 05/25/2024 03:08:07 05/24/20 24 05/24/2024 CBC WITH DIFFE RENTI AL/PL ATELE T eos (absolute) 0.1 x10e3 /uL 0.0-0. 4 Not Available [facility] [address] [place], [address], 05/25/2024 03:08:07 05/24/20 24 05/24/2024 CBC WITH DIFFE RENTI AL/PL ATELE T baso (absolute) 0.1 x10e3 /uL 0.0-0. 2 Not Available [facility] [address] [place], [address], 05/25/2024 03:08:07 05/24/20 24 05/24/2024 CBC WITH DIFFE RENTI AL/PL ATELE T immature granulocytes 0.3 % notest b. Not Available [facility] [address] [place], [address], 05/25/2024 03:08:07 05/24/20 24 05/24/2024 CBC WITH DIFFE RENTI AL/PL ATELE T immature grans (abs) 0.0 x10e3 /uL 0.0-0. 1 Not Available [facility] [address] [place], [address], 05/25/2024 03:08:07 05/24/20 24 05/24/2024 CBC WITH DIFFE RENTI AL/PL ATELE T NRBC 0 % 0-0 Not Available [facility] [address] [place], [address], 05/25/2024 03:08:07 05/24/20 24 05/26/2024 URINE CULTU RE,CO MPREH ENSIV E urine culture,comp rehensive FINAL REPORT abnormal Not Available [facility] ([facility]) [address] [facility], [place], [address], 05/26/2024 08:24:39 05/24/20 24 05/26/2024 URINE CULTU RE,CO MPREH ENSIV E result 1 COMMEN T abnormal Beta hemol ytic Strep tococ cus, group B 400 Colon ies/m L Penic illin and ampic illin are drugs of choic e for treat ment of beta- hemol ytic strep tococ tanisha infec tions . Susce ptibi lity testi ng of penic illin s and other beta- lacta m agent s appro elise by the FDA for treat ment of beta- hemol ytic strep tococ tanisha infec tions need not be perfo rmed routi pranav becau se nonsu scept ible isola digna are extre ricardo rare in any beta- hemol ytic strep tococ cus and have not been repor tino for Strep tococ cus pyoge michael (grou p A). (CLSI ) Not Available [facility] ([facility]) [address] [place], [address], 05/26/2024 08:24:39 05/24/20 24 05/26/2024 URINE CULTU RE,CO MPREH ENSIV E result 2 COMMEN T Mixed uroge nital wili 3,000 Colon ies/m L Not Available [facility] ([facility]) [address] [place], [address], 05/26/2024 08:24:39 05/24/20 24 05/25/2024 ANTIN UCLEA R AB MULTI PLEX RFX 9 PETER direct NEGATI VE negati ve Not Available [facility] ([facility]) [address] [place], [address], 05/27/2024 20:10:02 05/24/20 24 05/25/2024 TSH RFX ON ABNOR MAL TO FREE T4 TSH 0.837 uIU/m L 0.450- 4.500 Not Available [facility] ([facility]) [address] [place], [address], 05/27/2024 20:10:03 05/24/20 24 05/24/2024 ALLER GENS W/TOT AL IGE AREA 8 class description COMMEN T Level s of Speci fic IgE Class Descr iptio n of Class ----- ----- ----- ----- ----- -- ----- ----- ----- ----- ----- < 0.10 0 Negat ema 0.10 - 0.31 0/I Equiv ocal/ Low 0.32 - 0.55 I Low 0.56 - 1.40 II Moder ate 1.41 - 3.90 III High 3.91 - 19.00 IV Very High 19.01 - 100.0 0 V Very High >100. 00 Very High Not Available [facility] ([facility]) [address] [place], [address], 05/27/2024 20:10:03 05/24/20 24 05/27/2024 ALLER GENS W/TOT AL IGE AREA 8 immunoglobul in E, total 34 IU/mL 6-495 Not Available [facility] ([facility]) [address] [place], [address], 05/27/2024 20:10:03 05/24/20 24 05/27/2024 ALLER GENS W/TOT AL IGE AREA 8 O583-GdA D pteronyssinu s <0.10 kU/L class0 Not Available [facility] ([facility]) [address] [place], [address], 05/27/2024 20:10:03 05/24/20 24 05/27/2024 ALLER GENS W/TOT AL IGE AREA 8 V023-XyF D farinae <0.10 Not Available [facility] ([facility]) [address] [place], [address], 05/27/2024 20:10:03 05/24/20 24 05/27/2024 ALLER GENS W/TOT AL IGE AREA 8 L330-PyR CAT dander <0.10 Not Available [facility] ([facility]) [address] [place], [address], 05/27/2024 20:10:03 05/24/20 24 05/27/2024 ALLER GENS W/TOT AL IGE AREA 8 P612-HyX dog dander <0.10 Not Available [facility] ([facility]) [address] [facility], [place], [address], 05/27/2024 20:10:03 05/24/20 24 05/27/2024 ALLER GENS W/TOT AL IGE AREA 8 A667-QmZ mouse urine <0.10 Not Available [facility] ([facility]) [address] [facility], [place], [address], 05/27/2024 20:10:03 05/24/20 24 05/27/2024 ALLER GENS W/TOT AL IGE AREA 8 i532-DiZ bermuda grass <0.10 Not Available [facility] ([facility]) [address] [place], [address], 05/27/2024 20:10:03 05/24/20 24 05/27/2024 ALLER GENS W/TOT AL IGE AREA 8 k854-QsR jessica grass <0.10 Not Available [facility] ([facility]) [address] [place], [address], 05/27/2024 20:10:03 05/24/20 24 05/27/2024 ALLER GENS W/TOT AL IGE AREA 8 A051-HnK cockroach, bruneian <0.10 Not Available [facility] ([facility]) [address] [place], [address], 05/27/2024 20:10:03 05/24/20 24 05/27/2024 ALLER GENS W/TOT AL IGE AREA 8 H851-PeQ penicillium chrysogen <0.10 Not Available [facility] ([facility]) [address] [place], [address], 05/27/2024 20:10:03 05/24/20 24 05/27/2024 ALLER GENS W/TOT AL IGE AREA 8 I457-EwQ cladosporium herbarum <0.10 Not Available [facility] ([facility]) [address] [facility], [place], [address], 05/27/2024 20:10:03 05/24/20 24 05/27/2024 ALLER GENS W/TOT AL IGE AREA 8 Z618-RdV aspergillus fumigatus <0.10 Not Available [facility] ([facility] [address] [facility], [place], [address], 05/27/2024 20:10:03 05/24/20 24 05/27/2024 ALLER GENS W/TOT AL IGE AREA 8 T080-UwT alternaria alternata <0.10 Not Available [facility] ([facility]) [address] [facility], [place], [address], 05/27/2024 20:10:03 05/24/20 24 05/27/2024 ALLER GENS W/TOT AL IGE AREA 8 Z399-AsP maple/box elder <0.10 Not Available [facility] ([facility]) [address] [place], [address], 05/27/2024 20:10:03 05/24/20 24 05/27/2024 ALLER GENS W/TOT AL IGE AREA 8 K249-IqR cedar, mountain 0.46 kU/L classi abnormal Not Available [facility] ([facility]) [address] [place], [address], 05/27/2024 20:10:03 05/24/20 24 05/27/2024 ALLER GENS W/TOT AL IGE AREA 8 F547-GdZ oak, white <0.10 kU/L class0 Not Available [facility] ([facility]) [address] [place], [address], 05/27/2024 20:10:03 05/24/20 24 05/27/2024 ALLER GENS W/TOT AL IGE AREA 8 R274-KsH elm, citizen [place] <0.10 Not Available [facility] ([facility] [address], [place], [address], 05/27/2024 20:10:03 05/24/20 24 05/27/2024 ALLER GENS W/TOT AL IGE AREA 8 Z956-OxI walnut <0.10 Not Available [facility] ([facility]) [address], [place], [address], 05/27/2024 20:10:03 05/24/20 24 05/27/2024 ALLER GENS W/TOT AL IGE AREA 8 L989-JdN maple leaf sycamore <0.10 Not Available [facility] ([facility]) [address], [place], [address], 05/27/2024 20:10:03 05/24/20 24 05/27/2024 ALLER GENS W/TOT AL IGE AREA 8 A777-BfZ cottonwood <0.10 Not Available [facility] ([facility]) [address], [place], [address], 05/27/2024 20:10:03 05/24/20 24 05/27/2024 ALLER GENS W/TOT AL IGE AREA 8 Y274-AaQ patricia, white <0.10 Not Available [facility] ([facility] [address] [facility], [place], [address], 05/27/2024 20:10:03 05/24/20 24 05/27/2024 ALLER GENS W/TOT AL IGE AREA 8 N521-OlM pecan, hickory <0.10 Not Available [facility] ([facility] [address] [facility], [place], [address], 05/27/2024 20:10:03 05/24/20 24 05/27/2024 ALLER GENS W/TOT AL IGE AREA 8 R378-AfO white mulberry <0.10 Not Available [facility] ([facility]) [address] [facility], [place], [address], 05/27/2024 20:10:03 05/24/20 24 05/27/2024 ALLER GENS W/TOT AL IGE AREA 8 C413-ExP ragweed, short <0.10 Not Available [facility] ([facility]) [address] [facility], [place], [address], 05/27/2024 20:10:03 05/24/20 24 05/27/2024 ALLER GENS W/TOT AL IGE AREA 8 Z699-SeM thistle, sammarinese <0.10 Not Available [facility] ([facility]) [address] [facility], [place], [address], 05/27/2024 20:10:03 05/24/20 24 05/27/2024 ALLER GENS W/TOT AL IGE AREA 8 M439-EeJ pigweed, common <0.10 Not Available [facility] ([facility]) [address] [facility], [place], [address], 05/27/2024 20:10:03 05/24/20 24 05/27/2024 ALLER GENS W/TOT AL IGE AREA 8 N754-XdD rough marshelder <0.10 Not Available [facility] ([facility]) [address] [place], [address], 05/27/2024 20:10:03 05/24/20 24 05/27/2024 FOOD ALLER GY PROFI LE R021-PtB egg white <0.10 Not Available [facility] ([facility]) [address] [place], [address], 05/27/2024 20:10:04 05/24/20 24 05/27/2024 FOOD ALLER GY PROFI LE B726-OwD peanut <0.10 Not Available [facility] ([facility]) [address] [place], [address], 05/27/2024 20:10:04 05/24/20 24 05/27/2024 FOOD ALLER GY PROFI LE B452-AlX soybean <0.10 Not Available [facility] ([facility]) [address] [place], [address], 05/27/2024 20:10:04 05/24/20 24 05/27/2024 FOOD ALLER GY PROFI LE L790-NuE milk <0.10 Not Available [facility] ([facility]) [address] [place], [address], 05/27/2024 20:10:04 05/24/20 24 05/27/2024 FOOD ALLER GY PROFI LE G200-SfI clam <0.10 Not Available [facility] ([facility]) [address] [place], [address], 05/27/2024 20:10:04 05/24/20 24 05/27/2024 FOOD ALLER GY PROFI LE O498-UvV shrimp <0.10 Not Available [facility] ([facility]) [address] [place], [address], 05/27/2024 20:10:04 05/24/20 24 05/27/2024 FOOD ALLER GY PROFI LE L933-FkJ walnut <0.10 Not Available [facility] ([facility]) [address] [place], [address], 05/27/2024 20:10:04 05/24/20 24 05/27/2024 FOOD ALLER GY PROFI LE C390-OkC codfish <0.10 Not Available [facility] ([facility]) [address] [place], [address], 05/27/2024 20:10:04 05/24/20 24 05/27/2024 FOOD ALLER GY PROFI LE N689-UiW scallop <0.10 Not Available [facility] ([facility]) [address] [facility], [place], [address], 05/27/2024 20:10:04 05/24/20 24 05/27/2024 FOOD ALLER GY PROFI LE K735-OyE wheat <0.10 Not Available [facility] ([facility]) [address] [facility], [place], [address], 05/27/2024 20:10:04 05/24/20 24 05/27/2024 FOOD ALLER GY PROFI LE H897-LeS corn <0.10 Not Available [facility] ([facility]) [address] [facility], [place], [address], 05/27/2024 20:10:04 05/24/20 24 05/27/2024 FOOD ALLER GY PROFI LE J687-TsT sesame seed <0.10 Not Available [facility] ([facility]) [address] [facility], [place], [address], 05/27/2024 20:10:04 05/24/20 24 05/25/2024 VITAM IN B12 AND FOLAT E vitamin B12 339 pg/mL 232-12 45 Not Available [facility] ([facility]) [address] [facility], [place], [address], 05/27/2024 20:10:05 05/24/20 24 05/25/2024 VITAM IN B12 AND FOLAT E folate (folic acid), serum 3.0 NG/mL >3.0 below low normal A serum folat e allison ntrat ion of less than 3.1 ng/mL is consi dered to repre sent clini tanisha defic iency . Not Available [facility] ([facility]) [address] [facility], [place], [address], 05/27/2024 20:10:05 05/24/20 24 05/25/2024 IRON AND TIBC iron bind.cap.(TI BC) 421 ug/dL 250-45 0 Not Available [facility] ([facility]) [address] [facility], [place], [address], 05/27/2024 20:10:06 05/24/20 24 05/25/2024 IRON AND TIBC UIBC 299 ug/dL 131-42 5 Not Available [facility] ([facility]) [address] [facility], [place], [address], 05/27/2024 20:10:06 05/24/20 24 05/25/2024 IRON AND TIBC iron 122 ug/dL 27-159 Not Available [facility] ([facility]) [address], [place], [address], 05/27/2024 20:10:06 05/24/20 24 05/25/2024 IRON AND TIBC iron saturation 29 % 15-55 Not Available [facility] ([facility]) [address], [place], [address], 05/27/2024 20:10:06 05/24/20 24 05/25/2024 VITAM IN D, 25-HY DROXY vitamin D, 25-hydroxy 32.1 NG/mL 30.0-1 00.0 Vitam in D defic iency has been defin ed by the Insti tute of Medic ine and an Endoc rine Socie ty pract ice guide line as a level of serum 25-OH vitam in D less than 20 ng/mL (1,2) . The Endoc rine Socie ty went on to [facility] er defin e vitam in D insuf ficie ncy as a level betwe en 21 and 29 ng/mL (2). 1. IOM (Inst itute of Medic ine). 2010. Dieta ry refer ence inez es for calci um and D. Kassidy avendano [place]: The [facility]io [facility] Press . 2. Geri k [place], [place], Osiris off-F errar i REYNOLDS, et al. Evalu ation , treat ment, and preve ntion of vitam in D defic iency : an Endoc rine Socie ty clini tanisha pract ice guide line. JCEM. 2010; 96(7) :1911 -30. Not Available [facility] ([facility]) [address], [place], [address], 05/27/2024 20:10:06 Result Notes None recorded. Problems Name Problem SNOMED Code Status Onset Date Resolution Date Notes Provider Name and Address Organization Details Recorded Time Migraine 08198014 Active 024 Anna Swann APN, MAYDA-Dominic Attn: Accounting ,[address] [facility], [place], [address] , [place] - [facility] 4 10:57:35 Chronic sinusitis 17976129 Active 024 Anna Swann APN, MAYDA-Dominic Attn: Accounting ,[address] [place], [address] , [place] [facility] 4 10:57:38 Problem Notes None recorded. Procedures Surgical History Date Name Laterality Status Provider Name and Address Organization Details Recorded Time 3 Control Implant Removal completed DEBRA ROQUE MD Attn: Accounting, [place], [address], [place] - [facility] 01/07/2023 14:50:33 Imaging Results None recorded. Procedure Notes None recorded. Medical Equipment None Reported. Allergies Allergen ID Allergen Name Allergen Category Reaction Reaction Severity Criticality Documentation Date Start Date Code Code System Note Provider Name and Address Organization Details Recorded Time 213404 amoxicill in medicatio n Not available Not available Not available 01/07/2023 723 RxNorm unkno wn react ion was told by HELADIO Mauricio, [place] - [facility] 3 13:58:49 173139 Medicinal product containin g penicilli n and acting as antibacte rial agent (product) medicatio n Not available Not available Not available 01/07/2023 48554 05 SNOMED unkno wn react ion HELADIO Romero, [place] - [facility] 3 13:59:05 207197 sumatript an medicatio n facial swelling Not available Not available 06/21/2024 17217 RxNorm Anna Swann APN, SUDHIRC Attn: Sophy lopez,[address], [place], [address], [facility] 4 08:52:41 Medications Name Sig Start Date Stop Date Status Note LastModified by Organization Details LastModified Time sumatript an 25 mg tablet take 1 tab po at onset of migraine , may repeat in 2 hrs if not improved 06/21 completed reporte facial rash/swe lling Not Available Not Available Not Available prednison e 20 mg tablet active Not Available Not Available Not Available sulfameth oxazole 800 mg-trimet hoprim 160 mg tablet 05/24 completed Not Available Not Available Not Available doxycycli ne monohydra te 100 mg tablet 05/24 completed Not Available Not Available Not Available ondansetr on 8 mg disintegr ating tablet 05/24 completed Not Available Not Available Not Available doxycycli ne monohydra te 100 mg capsule active Not Available Not Available Not Available omeprazol e 20 mg capsule,d elayed release Take 1 capsule every day by oral route. active Not Available Not Available No t Available folic acid 1 mg tablet Take 1 tablet every day by oral route. active Not Available Not Available No t Available diclofena c sodium 50 mg tablet,de layed release 05/24 completed Not Available Not Available Not Available loratadin e 10 mg tablet Take 1 tablet every day by oral route. active Not Available Not Available No t Available nitrofura ntoin monohydra te/macroc rystals 100 mg capsule Take 1 capsule every 12 hours by oral route for 5 days. active Not Available Not Available No t Available Nexplanon 05/24 completed Not Available Not Available Not Available Vitals Date Recorded Body weight Body mass index (BMI) Body height Body temperature Heart rate Oxygen saturation Oxygen saturation in Arterial blood by Pulse oximetry Systolic blood pressure Diastolic blood pressure Provider Name and Address Organization Details Last Updated DateTime 3 61956.8 9 g 33 kg/m2 167.64 cm 97.5 [degF] 86 /min 98 % 98 % 125 mm[Hg] 83 mm[Hg] Vonnie [place] [facility] - [facility] 3 13:55:54 Date Recorded Body height Body mass index (BMI) Body weight Oxygen saturation Oxygen saturation in Arterial blood by Pulse oximetry Body temperature Respiratory rate Heart rate Systolic blood pressure Diastolic blood pressure Provider Name and Address Organization Details Last Updated DateTime 4 167.64 cm 33.1 kg/m2 69575.4 4 g 97 % 97 % 97.5 [degF] 16 /min 74 /min 132 mm[Hg] 88 mm[Hg] LEYDA Edward [place] - [facility] 4 10:17:10 Social History Question Answer Notes LastModified by ReadyDock[employer]at ion Details LastModified Time Tobacco Smoking Status Never Smoker Vonnie Woods[place]ADIO, [place] - [facility] 01/07/2023 14:03:53 What Is Your Level Of Alcohol Consumption? Occasional Information not available 01/07/2023 Are You Blind Or Do You Have Difficulty Seeing? No Information not available 01/07/2023 What Is Your Level Of Caffeine Consumption? Occasional Information not available 01/07/2023 In The 14 Days Before Symptom Onset, Have You Had Close Contact With A Laboratory-confir med COVID-19 While That Case Was Ill? No Information not available 01/07/2023 In The 14 Days Before Symptom Onset, Have You Had Close Contact With A Person Who Is Under Investigation For COVID-19 While That Person Was Ill? No Information not available 01/07/2023 Have You Been To An Area Known To Be High Risk For COVID-19? No Information not available 01/07/2023 Are You Currently Employed? No Information not available 05/24/2024 Are You Deaf Or Do You Have Serious Difficulty Hearing? No Information not available 01/07/2023 What Type Of Diet Are You Following? REGULAR Information not available 01/07/2023 Do You Or Have You Ever Used E-cigarettes Or Vape? Former User Of Electronic Cigarettes Information not available 01/07/2023 Are There Any Guns Present In Your Home? Yes Information not available 01/07/2023 What Was The Date Of Your Most Recent Tobacco Screening? 05/24/2024 Information not available 05/24/2024 How Many Children Do You Have? 3 Information not available 01/07/2023 Do You Use Protection During Sex? No Information not available 01/07/2023 What Is Your Relationship Status? Information not available 01/07/2023 Do You Use Your Seat Belt Or Car Seat Routinely? Yes Information not available 01/07/2023 Are You Sexually Active? Yes Information not available 01/07/2023 Do You Have Smoke And Carbon Monoxide Detectors In Your Home? Yes Information not available 01/07/2023 Are You Passively Exposed To Smoke? No Information no t available 01/07/2023 Do You Feel Stressed (tense, Restless, Nervous, Or Anxious, Or Unable To Sleep At Night)? FP3413-3 Information not available 01/07/2023 Do You Use Any Illicit Or Recreational Drugs? No Information not available 01/07/2023 Do You Use Sunscreen Routinely? Yes Information not available 01/07/2023 Has Tobacco Cessation Counseling Been Provided? No Information not available 01/07/2023 Do You Or Have You Ever Used Any Other Forms Of Tobacco Or Nicotine? Yes Information not available 01/07/2023 Sex: Female Functional Status Question Answer Note LastModified by Organization D etails LastModified Time Are you able to care for yourself? Yes Information n ot available 01/07/2023 What is your exercise level? None Information not available 05/24/2024 Mental Status None recorded. Family History Nothing Reported Notes:01/07/23 pt is adopted Medical History Condition Response Coronary Artery Disease N Other N High Blood Pressure N Atrial Fibrillation N Thyroid Problems N Kidney or Bladder Problems Y GI Problems N Depression Y COPD N Blood Clots N Skin Problems N Eating Disorder N Anemia N Heart Attack ([place]) N Anxiety Disorder Y Diabetes N Muscle, Joint, or Bone Problems N Arthritis N Seizures/Epilepsy N Have you had a colonoscopy in the last 1 0 years? N Acid Reflux (GERD) N Cancer N Stroke N Asthma N Allergies N ADHD N Substance Abuse N High Cholesterol N Hepatitis N Liver Disease N Schizophrenia N Headaches Y Heart Failure N Osteoporosis N Gynecological History Statement/Question Response Flow Heavy Date of LMP 05/22/2024 On BCP's at Conception? N Menses Monthly Y Date of Last Pap Smear Age at Menarche 13 Current Control Method None Age at First Child 22 LMP Definite Obstetrics History GPAL:G 3 P 3 0 0 3 Type Value Multiple Births 0 Full Term 3 Induced 0 Spontaneous 0 Premature 0 Living 3 Ectopics 0 Total 3 Past Encounters Encounter ID Performer Location Encounter Start Date Encounter Closed Date Diagnosis/Indication Diagnosis SNOMED-CT Code Diagnosis ICD10 Code [id number] MD Jose GOLD ([employer]) [address] [place] [address] 01/07/2023 13:45:05 01/13/2023 09:22:20 Removal of subcutaneous contraceptive 543486733 Z30.46 [id number] Anna Swann APN, ADVERTISING COLUMNIST-C [facility] (Adult Med) [address] [place] [address] 05/24/2024 10:01:39 05/28/2024 08:59:13 Adult health examination 766833374 Z00.01 Recurrent urinary tract infection 988424365 N39.0 Chronic sinusitis 458765 00 J32.9 Migraine 96521712 G43.90 9 Obesity 397814820 E66.8 Fatigue 91980966 R53.83 Health Concerns Section Related Observation LastModified by Organization Detai ls LastModified Time None Recorded Concern Status LastModified by Organization Details LastModified Time None Recorded Advance Directives Directive None Recorded Payers Encounter Date Sequence Insurance Name Policy Number Policy Rodriguez Covered Member ID Rodriguez Member ID Guarantor Name 01/07/2023 1 [place] [facility] [id number] [facility] 05/24/2024 2 *SELF PAY* [facility] 05/24/2024 2 [place] [facility] [id number] [facility] Notes Date Note Type Note Provider Name and Address Organization Details Recorded Time 01/07/2023 text/html Nexplanon remova l- Placed 10/10/[address] Villa after most recent delivery- Not hoping for another - Partner with vasectomy DEBRA ROQUE MD Attn: Accounting,[address] [place], [address], [facility] 01/07/2023 21:31:11 05/24/2024 text/html new pt to est care-Pt used to see dr Franklin Israel in [facility]. Moved here 2 years ago. Pt c/o chronic migraines- has never had any imaging. Went to [facility] in [place] a few months and was given toradol shot and given steriod. Pt c/o nausea, dizziness and always feeling sick. Random bruising. Pt c/o sinus issues that is causing face soreness. taking otc decongestant, flonase and zyrtec in past; Pt gets frequent UTI. has been hospitalized for them. Anna Swann APN, ADVERTISING COLUMNIST-C Attn: Accounting,[address] , [place], [address], [facility] 05/24/2024 10:59:49 OBGyn Episode Ob Episode Information Episode Created Date Number of Fetuses Patient Bloodtype Patient rh Status Prepregnancy Weight lbs Domestic Partner Domestic Partner Phone Father Name Manager Advertising Status 01/08/20 23 1 CLOSED Fetus Data First Name Last Name Admitted to NICU Weight (g) Sex Living Outcome Pediatric Complications Fetus ID Race Codes Race Delivery Type F Full Term [id number] Vaginal Mo Calculation MO Calculation Method Initial Mo Date Initial Exam Date Initial Exam Provider Initial Ultrasound Date Last Menstrual Period Date Ultra Sound Weeks Gestation Conception by IVF Embryo Age at Transfer Date of Transfer 0 Eighteen To Twenty Week Mo Update Ultra Sound Date Fundal Height At Umbil Quickening Date Ultra Sound Latest Weeks Gestation Final Mo Confirmed By Final Mo Confirmed Date Final Mo Date Ultra Sound Latest Days Gestation 0 0 Menstrual History Last Menstrual Date Menses Monthly On Bcp Conception Prior Menses Frequency Hcg Plus Date Menarche Onset Age Delivery Information Delivery Date Delivery Type Labor Anesthesia Weeks Gestation Incision Type Labor Labor Length Hrs Delivered By Post Complications Tubal Sterilization Discharge Date Comments 4 Discharge Information Feeding Method Contraceptive Method Maternal HG B and HCT Levels Ob Episode Information Episode Created Date Number of Fetuses Patient Bloodtype Patient rh Status Prepregnancy Weight lbs Domestic Partner Domestic Partner Phone Father Name Manager Advertising Status 01/08/20 23 1 CLOSED Fetus Data First Name Last Name Admitted to NICU Weight (g) Sex Living Outcome Pediatric Complications Fetus ID Race Codes Race Delivery Type F Full Term [id number] Vaginal Mo Calculation MO Calculation Method Initial Mo Date Initial Exam Date Initial Exam Provider Initial Ultrasound Date Last Menstrual Period Date Ultra Sound Weeks Gestation Conception by IVF Embryo Age at Transfer Date of Transfer 0 Eighteen To Twenty Week Mo Update Ultra Sound Date Fundal Height At Umbil Quickening Date Ultra Sound Latest Weeks Gestation Final Mo Confirmed By Final Mo Confirmed Date Final Mo Date Ultra Sound Latest Days Gestation 0 0 Menstrual History Last Menstrual Date Menses Monthly On Bcp Conception Prior Menses Frequency Hcg Plus Date Menarche Onset Age Delivery Information Delivery Date Delivery Type Labor Anesthesia Weeks Gestation Incision Type Labor Labor Length Hrs Delivered By Post Complications Tubal Sterilization Discharge Date Comments 7 Discharge Information Feeding Method Contraceptive Method Maternal HG B and HCT Levels Ob Episode Information Episode Created Date Number of Fetuses Patient Bloodtype Patient rh Status Prepregnancy Weight lbs Domestic Partner Domestic Partner Phone Father Name Manager Advertising Status 01/08/20 23 1 CLOSED Fetus Data First Name Last Name Admitted to NICU Weight (g) Sex Living Outcome Pediatric Complications Fetus ID Race Codes Race Delivery Type F Full Term [id number] Vaginal Mo Calculation MO Calculation Method Initial Mo Date Initial Exam Date Initial Exam Provider Initial Ultrasound Date Last Menstrual Period Date Ultra Sound Weeks Gestation Conception by IVF Embryo Age at Transfer Date of Transfer 0 Eighteen To Twenty Week Mo Update Ultra Sound Date Fundal Height At Umbil Quickening Date Ultra Sound Latest Weeks Gestation Final Mo Confirmed By Final Mo Confirmed Date Final Mo Date Ultra Sound Latest Days Gestation 0 0 Menstrual History Last Menstrual Date Menses Monthly On Bcp Conception Prior Menses Frequency Hcg Plus Date Menarche Onset Age Delivery Information Delivery Date Delivery Type Labor Anesthesia Weeks Gestation Incision Type Labor Labor Length Hrs Delivered By Post Complications Tubal Sterilization Discharge Date Comments 6 Discharge Information Feeding Method Contraceptive Method Maternal HG B and HCT Levels
--- OUTSIDE RECORDS SUMMARY | 2024-09-16 13:07 | XMS_ITS | Continuity of Care Document ---
Author Organization [facility] Address [id number] [address] Phone Care Team Providers Care Wood Borer Name Role Phone Unavailable Unavailable Unavailable Allergies, Adverse Reactions, Alerts Substance Reaction Status Criticality amoxicillin Active No Information Penicillins Active No Information Medications Medication Instructions Dosage Effective Dates (start - stop) Status Comments Cipro 500 mg Tab take 1 tablet (500MG ) by ORAL route every 12 hours 500 MG - Active Azo 95 mg Tab - Active Reclipsen (28) 0.15 mg-30 mcg Tab take 1 tablet by ORAL route every day 1.00 tablet - Active Procedures Procedure Date URINE TEST (PP $15) 0 PREV VISIT, NEW, AGE 18-39 Advance Directives Directive Yes / No Effective Date File Name Resuscitation Not Answered N/A N/A Life Support Not Answered N/A N/A Intubation Not Answered N/A N/A Antibiotics Not Answered N/A N/A IV Fluid Support Not Answered N/A N/A Tube Feed Not Answered N/A N/A Other Directive N/A N/A WARNING:The information contained in this section is historical and is provided for information only and does not constitute a legal document or any assurance that the information is still accurate. Please verify the information with the joaquin of the legal document before using it for clinical purposes. Encounters Encounter Description Practice Location Reason(s) For Visit Diagnoses Date Provider Providers Copied on Encounter [facility], [id number] [facility], [place], [place], [id number], [place] tel:[phone] Family Medicine F1 No Information 0 No Information PREV VISIT, NEW, AGE 18-39 [facility], [id number]-Ph [facility], [place], [place], [id number], [place] tel:[phone] Family Medicine F1 control (chief complaint) Routine Medical ExamRoutine Medical Exam May- 0 No Information Family History Family Member Type Diagnosis Age At Onset No Information Payers Payer name Insurance type Covered green party ID Authoriza tion(s) No Information Social History Type Description Quantity Date Captured Comments Alcohol Use Details No Caffeine Use Details coffee and soda 0 Tobacco Use Status No Information Smoking Status No Information Sex Female Chief Complaint And Reason For Visit No Information Reason For Referral Reason For Referral No Information History Of Present Illness Encounter Date Complaint History Of Prese nt Illness No Information Functional Status Date Functional Assessmen t No Information Instructions Date Instruction Additional Infor mation No Information Assessments Type Assessment Date No Information Patient Care Teams Name Effective Dates (start - stop) Status Members No Information
== END 2024-09-09 09:10 | disposition home or self-care (01) ==
PROVIDERS: Emergency Provider Registered Nurse
DX: S76.312A Strain of muscle, fascia and tendon of the posterior muscle group at thigh level, left thigh, initial encounter (principal); X58.XXXA Exposure to other specified factors, initial encounter
CPT/HCPCS: 99213; G0463

== ENCOUNTER 2025-02-14 08:52 | Emergency (ER) | payer BC, SELFPAY ==
[2025-02-14 08:58] VITALS: BP 156/82; PULSE 75; RESP 20; TEMP 36.6; O2SAT 100
--- OUTSIDE RECORDS SUMMARY | 2025-02-14 09:09 | XMS_ITS | Continuity of Care Document ---
Author Organization [facility] Address [address] [id number] [address] Phone Care Team Providers Care Metal Cutter Name Role Phone Unavailable Unavailable Unavailable Allergies, [...] Diagnoses Date Provider Providers Copied on Encounter [facility], [id number] [facility], [place], [place], [id number], [place] tel:[phone] Family Medicine F1 No Information 0 No Information PREV VISIT, NEW, AGE 18-39 [facility], [id number] [facility], [place], [place], [id number], [place] tel:[phone] Family Medicine F1 control (chief complaint) Routine Medical ExamRoutine Medical Exam May- 0 No Information Family History Family Member Type Diagnosis Age At Onset No Information Payers Payer name Insurance type Covered libertarian ID Authoriza tion(s) No Information Social History [...]
[2025-02-14 09:18] LABS: EDUAAPPEAR Clear; EDUABILI 1+ (Negative); EDUABLOOD 2+ (Negative); EDUACOLOR1 Orange; EDUAGLUCOSE Negative (Negative); EDUAKETONE 1+ (Negative); EDUALEUKO 1+ (Negative); EDUANITRATE Positive (Negative); EDUAPH 5.5; EDUAPROTEIN 1+ (Negative); EDUAUROBILI 0.2
--- NOTE | 2025-02-14 09:25 | ED.FEMALEGU ---
HPI - Female Genitourinary General Chief complaint: Urogenital-Female Stated complaint: Urinary Problem Time Seen by Provider: 02/14/25 09:25 Source: patient and RN notes reviewed Mode of arrival: ambulatory Limitations: no limitations History of Present Illness HPI Narrative: 34-year-old female presents Express Care complaining of urinary symptoms for 7 days. Patient reports having dysuria, increased frequency, suprapubic pain, and hematuria. Patient denies any fevers, body aches, chills, nausea, vomiting, diarrhea. Patient has has been taking azo for symptom relief. Patient reports having history of recurrent UTIs. Patient denies any other significant past medical history. Related Data Home Medications ?Medication ?Instructions ?Recorded ?Confirmed ?Last Taken ?Type folic acid 1 mg tablet 09/09/24 Unknown History loratadine 10 mg tablet mg 09/09/24 Unknown History Allergies Allergy/AdvReac Type Severity Reaction Status Date / Time amoxicillin Allergy Unknown Verified 09/09/24 08:23 Penicillins Allergy Unknown Verified 09/09/24 08:23 Review of Systems Review of Systems: CONSTITUTIONAL: Denies fever, chills, body aches, or sweats. EYES: Denies visual changes, redness, or discharge. ENT: Denies rhinorrhea, congestion, sore throat, or otalgia. CARDIOVASCULAR: Denies chest pain, palpitations, or edema. RESPIRATORY: Denies cough or dyspnea. GASTROINTESTINAL: Denies abdominal pain, nausea, vomiting, or diarrhea. GENITOURINARY: Positive for dysuria, increased frequency, hematuria, suprapubic pain. Negative for vaginal bleeding, vaginal discharge, painful intercourse SKIN: Denies rash or itching. MUSCULOSKELETAL: Denies back pain, joint pain, or myalgia. NEUROLOGIC: Denies headache, numbness, or weakness. PSYCHIATRIC: Denies anxiety or depression. All other systems reviewed are negative, except as documented in HPI. [facility] Past Medical History Medical History Migraine GERD (gastroesophageal reflux disease) Recurrent UTI Surgical History Surgical History No pertinent past surgical history Family History Family History Mother Family history non-contributory Social History Social History Smoking status: Never smoker Alcohol use details: social Substance use: never Gender identity (if verbalized by the patient): Female Sexual Orientation (if Verbalized by the Patient): Straight or Heterosexual Spiritual care concerns: No Comments At the time of my signature, I reviewed and agree with the nursing past medical, surgical, social, and family history. There is no relevant family history pertinent to the patient complaint. Exam Narrative: GENERAL: This is a well-nourished, well-developed adult, in no apparent distress. They are non ill-appearing, nontoxic appearing. HEAD: normocephalic, atraumatic. EYES: Sclera clear/white. Vision is grossly intact. Conjunctiva normal bilaterally. Extraocular movements intact. EARS: External ears normal,Hearing grossly intact. NOSE: External nose normal THROAT: Mucous membranes moist NECK: Normal range of motion CARDIOVASCULAR: Regular rate and rhythm. Normal S1-S2. No clicks, gallops, rubs, or murmurs. RESPIRATORY: Respiratory rate normal, respiratory effort nonlabored, no respiratory distress. Lung sounds clear to auscultation throughout. Lung sounds equal bilaterally. No adventitious lung sounds GASTROINTESTINAL: Abdomen soft, flat, mild tenderness to palpation to the suprapubic region, nondistended. Bowel sounds are active. No hepato-splenomegaly, or palpable masses. No guarding or rigidity. No rebound tenderness. SKIN: warm, Dry, intact with no suspicious lesions or rash, good texture and turgor. NEURO: awake, alert, and oriented to person, place and time. There were no obvious focal neurologic abnormalities. EXTREMITIES: No joint tenderness, effusion, or edema noted. BACK: Nontender without deformity. No CVA tenderness. Course Course Emergency Course: Portions of this record may have been created with voice recognition software Level of Care: Express Care Visit Vital Signs Vital signs: Vital Signs Temperature 97.9 F 02/14/25 08:58 Pulse Rate 75 02/14/25 08:58 Respiratory Rate 20 02/14/25 08:58 Blood Pressure 156/82 H 02/14/25 08:58 Pulse Oximetry 100 02/14/25 08:58 Oxygen Delivery Room Air 02/14/25 08:58 Temperature 97.9 F 02/14/25 08:58 Pulse Rate 75 02/14/25 08:58 Respiratory Rate 20 02/14/25 08:58 Blood Pressure 156/82 H 02/14/25 08:58 Pulse Oximetry 100 02/14/25 08:58 Oxygen Delivery Room Air 02/14/25 08:58 MDM - Female Genitourinary MDM Narrative Medical decision making narrative: Urine dipstick shows evidence of urinary tract infection, however patient to take Azos which could alter the results. Urine culture pending. Given patient's symptoms and physical exam findings is likely patient has a urinary tract infection. Patient's recent cultures show group B strep in her urine, will go ahead and treat her with cefpodoxime given her penicillin allergy. Patient says she only had a rash and no anaphylactic symptoms from the penicillin. Discussed physical exam findings. Advised supportive measures and signs/symptoms to go to the ER. Pt is appropriate for outpt treatment and f/u. 1100-patient called stated the pharmacy did not have the prescription she needed would like to use the same pharmacy. Prescription of Macrobid sent over to pharmacy. Differential Diagnosis Differential diagnosis: Likely urinary tract infection, cystitis and other (Pyelonephritis) Lab Data Attestation: I reviewed the patient's lab results. Labs: Lab Results 02/14/25 Range/Units 09:12 POC Urine Color [place] POC Urine Clarity Clear POC Urine pH 5.5 POC Ur Specif [place] 1.030 POC Urine Protein 1+ (Negative) POC Ur Glucose (UA) Negative (Negative) POC Urine Ketones 1+ (Negative) POC Urine Blood 2+ (Negative) POC Urine Nitrite Positive (Negative) POC Urine Bilirubin 1+ (Negative) POC Urine Urobilinogen 0.2 POC U Leukocyte Esteras 1+ (Negative) Discharge Plan Discharge Clinical Impression: Urinary tract infection Qualifiers: Urinary tract infection type: site unspecified Hematuria presence: with hematuria Qualified Code(s): N39.0 - Urinary tract infection, site not specified Patient Disposition: Home Condition: Stable Instructions: Antibiotic Form, Urinary Tract Infection in Women (ED) Additional Instructions: Take the antibiotic as prescribed The urine will be sent of for a culture to identify what type of bacteria is causing your infection. If the culture shows that the antibiotic will not get rid of your infection, you will be notified and a new antibiotic will be called in for you. Increase water intake you will need to follow up with your PCP 3-5 days. Go to the ER for any worsening symptoms, abdominal pain, fevers, nausea, vomiting, or any other concerns Patient Language: Kyr[place] Prescriptions: New nitrofurantoin monohyd/m-cryst [Macrobid] 100 mg capsule 100 mg PO Q12H 5 Days Qty: 10 0RF Rx Instructions: must administer with a meal/food No Action folic acid 1 mg tablet loratadine 10 mg tablet prednisone 20 mg tablet 20 mg PO BID Qty: 10 0RF ibuprofen 400 mg tablet 400 mg PO TID PRN (Reason: fever or pain) Qty: 30 0RF Follow-up/Referrals: Leeroy Campo MD [Physician] - UNKNOWN,DOCTOR [Primary Care Provider] - Time of Disposition: 09:31
== END 2025-02-14 09:46 | disposition home or self-care (01) ==
DX: N39.0 Urinary tract infection, site not specified (principal); K21.9 Gastro-esophageal reflux disease without esophagitis
CPT/HCPCS: 81003; 87086; 99213; G0463

== ENCOUNTER 2025-04-14 08:46 | Emergency (ER) | payer BC, SELFPAY ==
--- NOTE | 2025-04-14 08:47 | ED_ITS ---
HPI - Female Genitourinary General Chief complaint: Urogenital-Female Stated complaint: UTI SYMPTOMS Time Seen by Provider: 04/14/25 08:46 Source: patient Mode of arrival: ambulatory Limitations: no limitations History of Present Illness HPI Narrative: Patient is a 35-year-old female who presents with 3 days of burning with urination, urgency and frequency. Has been taking azo. Denies any low back pain, fever, chills, nausea, vomiting, diarrhea. History of frequent UTIs MD elicited complaint: dysuria Related Data Home Medications ?Medication ?Instructions ?Recorded ?Confirmed ?Last Taken ?Type folic acid 1 mg tablet 09/09/24 Unknown History loratadine 10 mg tablet mg 09/09/24 Unknown History Allergies Allergy/AdvReac Type Severity Reaction Status Date / Time amoxicillin Allergy Unknown Verified 04/14/25 09:12 Penicillins Allergy Unknown Verified 04/14/25 09:12 Review of Systems Review of Systems: All systems reviewed & are unremarkable except as noted in HPI and below Constitutional: Constitutional: Denies chills, Denies fever(s), Denies headache(s), Denies malaise and Denies weakness Eyes: Eyes: Denies change in vision, Denies eye discharge and Denies irritation ENT: Denies otalgia, Denies headache(s), Denies nasal congestion, Denies nasal discharge, Denies sinus pain and Denies sore throat Cardiovascular: Cardiovascular: Denies chest pain, Denies edema, Denies palpitations and Denies dyspnea Respiratory: Respiratory: Denies cough and Denies dyspnea Gastrointestinal: Gastrointestinal: Denies abdominal pain, Denies diarrhea, Denies nausea and Denies vomiting Genitourinary: Genitourinary: Denies hematuria, Reports nocturia, Reports dysuria, Denies flank pain and Reports urinary urgency Musculoskeletal: Musculoskeletal: Denies back pain and Denies numbness Integumentary/Breasts: Skin/Breast: Denies pruritus and Denies rash Neurologic: Denies headache(s), Denies numbness and Denies weakness Psychiatric: Psychiatric: Reports no additional psychiatric complaints Endocrine: Endocrine: Denies palpitations PMFSH Past Medical History Medical History Migraine GERD (gastroesophageal reflux disease) Recurrent UTI Surgical History Surgical History No pertinent past surgical history Family History Family History Mother Family history non-contributory Social History Social History Smoking status: Never smoker Alcohol use details: social Substance use: never Gender identity (if verbalized by the patient): Female Sexual Orientation (if Verbalized by the Patient): Straight or Heterosexual Spiritual care concerns: No Comments At time of signature, agree with nursing past medical, surgical, social and f amily history. There is no relevant family history pertinent to the presenting complaint. Exam Const: General: cooperative, healthy appearing, comfortable, no acute distress and well nourished Nutritional Appearance: well nourished Orientation/consciousness: patient oriented x3 HENMT: Head: normocephalic and atraumatic Ears: external ears normal Face/Nose/Sinus: Normal external nose present, Normal nares present and normal facial exam Face and sinus: normal facial exam Eyes: General: appearance normal, both eyes and all related structures Pupils: Equal, round and reactive pupils present EOM: EOMs intact bilaterally Neck: Neck: normal visual inspection, full ROM and supple Chest: Chest palpation & inspection: normal inspection of the chest Resp: Effort & Inspection: normal respiratory effort and able to speak in complete sentences Cardio: Rate: regular rate Rhythm: regular rhythm GI: Inspection: normal to inspection GI Palp: No abdominal tenderness and Yes Soft to palpation : General: Yes no CVA tenderness Back/Spine/Pelvis: Back: no CVA tenderness Skin: General skin exam: normal color and no rashes or lesions noted Neuro: General: patient oriented x3 and moves all extremities Cranial nerves: Yes Equal, round and reactive pupils present Extrem: General: normal to inspection and full ROM Psych: Appearance: grossly normal and well kempt Course Course Emergency Course: Patient is aware of diagnosis, understands and agrees to treatment plan. Anticipatory guidance given. Patient agrees to follow-up as directed and is aware of reasons to seek care at the emergency department. Portions of this record may have been created with voice recognition software Level of Care: Express Care Visit Vital Signs Vital signs: Vital Signs Temperature 36.8 C 04/14/25 09:01 Pulse Rate 99 04/14/25 09:01 Respiratory Rate 16 04/14/25 09:01 Blood Pressure 130/80 04/14/25 09:01 Pulse Oximetry 99 04/14/25 09:01 Temperature 36.8 C 04/14/25 09:01 Pulse Rate 99 04/14/25 09:01 Respiratory Rate 16 04/14/25 09:01 Blood Pressure 130/80 04/14/25 09:01 Pulse Oximetry 99 04/14/25 09:01 Reviewed MDM - Female Genitourinary MDM Narrative Medical decision making narrative: Exam findings and symptoms lead to probable UTI; patient is non-toxic appearing and is in no distress. No CMT, adnexal tenderness, or evidence of pelvic etiology. Patient is appropriate for outpatient treatment and follow-up. Differential Diagnosis Differential diagnosis: Likely urinary tract infection, bacterial vaginosis, trichomoniasis, cervicitis, vaginitis and cystitis Medical Records Attestation: I reviewed the patient's medical records. Lab Data Lab results narrative: Unable to run pointing care due to use of azo. Will send for culture Discharge Plan Discharge Clinical Impression: Urinary tract infection Qualifiers: Urinary tract infection type: acute cystitis Patient Disposition: Home Condition: Stable Instructions: Urinary Tract Infection in Women (ED) Additional Instructions: We will send a urine culture to the lab, based on your symptoms we will start treatment today. If culture comes back and bacteria is not susceptible to antibiotic, your prescription may change. Your symptoms should improve within a day of starting antibiotics, but you should finish all the antibiotic pills you get. Otherwise your infection might come back Continue with increased water intake. Take Tylenol or ibuprofen as needed for pain or fever. Follow-up with primary care provider for urine recheck or see ER visit if condition worsens with high fever, nausea, vomiting, severe back pain Patient Language: Citizen Of [place] Prescriptions: New sulfamethoxazole-trimethoprim 800-160 mg tablet 1 tablet PO Q12H 5 Days Qty: 10 0RF No Action nitrofurantoin monohyd/m-cryst [Macrobid] 100 mg capsule 100 mg PO Q12H 5 Days Qty: 10 0RF Rx Instructions: must administer with a meal/food folic acid 1 mg tablet loratadine 10 mg tablet prednisone 20 mg tablet 20 mg PO BID Qty: 10 0RF ibuprofen 400 mg tablet 400 mg PO TID PRN (Reason: fever or pain) Qty: 30 0RF Follow-up/Referrals: Soham Roth MD [Physician] - 3 Days (Frequent UTI) Leeroy Campo MD [Physician] - 3 Days (Establish care) Time of Disposition: 09:35
[2025-04-14 09:01] VITALS: BP 130/80; PULSE 99; RESP 16; TEMP 36.8; O2SAT 99
== END 2025-04-14 09:42 | disposition home or self-care (01) ==
PROVIDERS: Emergency Provider Nurse Practitioner Family
DX: N30.00 Acute cystitis without hematuria (principal)
CPT/HCPCS: 87086; 99213; G0463

== ENCOUNTER 2025-06-28 08:57 | Emergency (ER) | payer BC, SELFPAY ==
[2025-06-28 09:06] VITALS: BP 143/89; PULSE 96; RESP 16; TEMP 36.9; O2SAT 100
--- NOTE | 2025-06-28 09:25 | ED.LOWEXIN ---
HPI - Extremity Injury (Lower) General Chief Complaint: Extremity Injury, Lower Stated Complaint: INJURED L KNEE Time Seen by Provider: 06/28/25 09:10 Source: patient Mode of arrival: ambulatory Limitations: no limitations History of Present Illness HPI Narrative: Nano is a 35-year-old female patient presenting to the clinic today with complaints of posterior left knee pain. She reports she fell a few days ago and getting up to go the bathroom around 2:00 a.m. in the morning. States pain is to the posterior knee and radiating into the front of the knee. Does have a mass to the posterior knee. Has pain with full flexion of the knee. No swelling. Related Data Home Medications ?Medication ?Instructions ?Recorded ?Confirmed ?Last Taken ?Type folic acid 1 mg tablet 09/09/24 Unknown History loratadine 10 mg tablet mg 09/09/24 Unknown History Allergies Allergy/AdvReac Type Severity Reaction Status Date / Time amoxicillin Allergy Unknown Verified 06/28/25 08:59 Penicillins Allergy Unknown Verified 06/28/25 08:59 Review of Systems Review of Systems: Pertinent positives per HPI. Patient denies any fever, chills, rash, headache, visual changes, dizziness, cough, runny nose, sore throat, shortness of breath, chest pain, palpitations, nausea, vomiting, diarrhea, constipation, abdominal pain, or any urinary issues. [facility] Past Medical History Medical History Migraine GERD (gastroesophageal reflux disease) Recurrent UTI Surgical History Surgical History No pertinent past surgical history Family History Family History Mother Family history non-contributory Social History Social History Smoking status: Never smoker Alcohol use details: social Substance use: never Gender identity (if verbalized by the patient): Female Sexual Orientation (if Verbalized by the Patient): Straight or Heterosexual Spiritual care concerns: No Comments At the time of my signature, I reviewed and agree with the nursing past medical, surgical, social, and family history. There is no relevant family history pertinent to the patient complaint. Exam Narrative: General: Well-developed, well nourished, in no apparent distress Head: Normocephalic, atraumatic. Cardio: Regular rate and rhythm, s1 and s2 normal, no murmur appreciated. Resp: Clear to auscultation bilaterally, no rhonchi, rales, wheezing or rubs. Musculoskeletal: No deformity, posterior knee pain radiating to the anterior knee,-tender to palpation over the posterior knee, palpable mass to the posterior knee-likely Serrano cyst, pain to the posterior knee radiating into the front of the knee with full flexion of the left knee, grossly normal range of motion, muscle strength strong and equal, peripheral pulse strong, no edema, no cyanosis, normal gait and station Course Course Emergency Course: Portions of this record may have been created with voice recognition software. Level of Care: Express Care Visit Vital Signs Vital signs: Vital Signs Temperature 36.9 C 06/28/25 09:06 Pulse Rate 96 06/28/25 09:06 Respiratory Rate 16 06/28/25 09:06 Blood Pressure 143/89 H 06/28/25 09:06 Pulse Oximetry 100 06/28/25 09:06 Temperature 36.9 C 06/28/25 09:06 Pulse Rate 96 06/28/25 09:06 Respiratory Rate 16 06/28/25 09:06 Blood Pressure 143/89 H 06/28/25 09:06 Pulse Oximetry 100 06/28/25 09:06 Vital signs reviewed MDM - Extremity Injury (Lower) MDM Narrative Medical decision making narrative: At the time of visit patient is resting comfortably on the exam table. Patient appears to be nontoxic. Complaints of posterior left knee pain. She reports she fell a few days ago and getting up to go the bathroom around 2:00 a.m. in the morning. States pain is to the posterior knee and radiating into the front of the knee. Does have a mass to the posterior knee. Has pain with full flexion of the knee. No swelling. On exam patient has no deformity, posterior knee pain radiating to the anterior knee,-tender to palpation over the posterior knee, palpable mass to the posterior knee-likely Serrano cyst, pain to the posterior knee radiating into the front of the knee with full flexion of the left knee. Plan: I suspect patient has a Serrano cyst to the left posterior knee. Recommend follow-up with Dr. Bourne for further evaluation. Supportive measures were discussed with the patient and they voiced understanding discharge instructions and agrees to treatment plan. Return precautions reviewed Differential Diagnosis Differential diagnosis: Likely acute internal derangement of knee and other (Serrano cyst, mass to the posterior knee, knee sprain) Discharge Plan Discharge Clinical Impression: Posterior left knee pain, Mass of left knee Patient Disposition: Home Condition: Stable Instructions: Antibiotic Form, Serrano Cyst (ED), Knee Pain (ED) Additional Instructions: I suspect you have a Serrano cyst to the left posterior knee. May continue taking Tylenol and ibuprofen. Follow-up with Dr. Bourne-orthopedic provider-call today to schedule appointment Patient Language: [place]ican Prescriptions: No Action folic acid 1 mg tablet loratadine 10 mg tablet ibuprofen 400 mg tablet 400 mg PO TID PRN (Reason: fever or pain) Qty: 30 0RF Follow-up/Referrals: Shree,Anna Nuñez APN [Primary Care Provider, Unknown] Time of Disposition: 09:14 Quality NIHSS Nursing Documentation ED NIHSS nursing documentation: reviewed/agree
== END 2025-06-28 09:15 | disposition home or self-care (01) ==
PROVIDERS: Emergency Provider Nurse Practitioner Family; PCP Nurse Practitioner Family
DX: M25.562 Pain in left knee (principal); R22.42 Localized swelling, mass and lump, left lower limb; K21.9 Gastro-esophageal reflux disease without esophagitis
CPT/HCPCS: 99211; G0463